=== PATIENT | female | born 1950 | race Caucasian/White ===

== ENCOUNTER 2023-07-22 13:48 | Outpatient (AMB) | payer MEDICARE, SELFPAY ==
--- NOTE | 2023-07-22 13:51 | MHC.OFFVIS ---
Intake Vital Signs 07/22/23 14:02 Height 5 ft 3 in BP 144/72 H Blood Pressure Location Rt brachial Position Sitting Respiration 16 Pulse 79 Pulse Source Pulse Oximeter Pulse Oximetry (%) 98 Oxygen Delivery Method Room Air Intake Visit Reasons: ENP-Subdural hematoma/abnormalities of gait&mobi Intake Note: Pt presents for new pt evaluation for abnormalities of gait and mobility. It Service Technician Required: No Allergies sulfamethoxazole Adverse Reaction (Intermediate, Verified 07/22/23 13:55) Anaphylaxis Medication List - Last Reconciled 07/22/23 by Pamella Lester MD albuterol sulfate 90 mcg/actuation 1 inh inhalation Q4-6H PRN atorvastatin 10 mg PO DAILY calcium carbonate (Calcium) 600 mg PO DAILY clobetasol 0.05% 1 appl topical DAILY duloxetine 60 mg PO DAILY duloxetine 30 mg PO DAILY fluticasone propionate 50 mcg/actuation (Allergy Relief (fluticasone)) 1 spray intranasal DAILY gabapentin 600 mg PO BEDTIME levothyroxine 75 mcg PO DAILY magnesium oxide 500 mg PO DAILY HPI HPI Comments History of Present Illness Details 73y/o right handed female comes for neurological evaluation following a traumatic cerebral hemorrhage in Mar 2023. she had a fall in the garage of her house - fell on cement / 3 stairs . she lost consiousness. Her found her , she had ice cream had not melted so she presumes that she was not unconscious for a long time.she woke up when her found her and she was confused and agitated. she was taken to [facility] trauma center-[facility] was 9 and improved to 13. she was found to have cerbebral hemorrhage, subarachnoid hemorrhage and 3 mm subdural hematoma in the left frontoparietal region with right occipiatl parietal bone nondisplaced skull fracture .( see results for details) Patient was seen by Neurosurgery and was admitted to ICU and started on seizure prophylaxis with keppra 500mg bid for 1 week. Her status improved and she was transferred to [facility] .when she was discharged she was neurologically stable with no deficits. Since her fall, she feels her cognition and walking is worse- better now.she denies headaches. she denies dizziness. COUNT INCLUDES [facility] Medical History (Updated 07/22/23 @ 15:10 by Pamella Lester MD) Cerebral hemorrhage following injury Cerebral hemorrhage without late effect Anxiety Obstructive sleep apnea Hyperlipidemia HTN (hypertension) Gait abnormality Lichen planus Depression Raynauds phenomenon Asthma Restless legs syndrome (RLS) Prediabetes Dizziness Hypothyroidism Surgical History H/O total hysterectomy History of cholecystectomy Total knee replacement status Social History Household Members: Spouse Caregiver staying overnight: Yes Housing: House Alcohol intake: current Comment: beer- occasional Patient Tobacco Use Status: Former Tobacco user Years Smoked: Quit in 1979 Physical Exam Vital Signs: Last Vital Signs Pulse 79 07/22/23 14:02 Resp 16 07/22/23 14:02 BP 144/72 H 07/22/23 14:02 Pulse Ox 98 07/22/23 14:02 Oxygen Delivery Method Room Air 07/22/23 14:02 Const General: cooperative, healthy appearing, comfortable and no acute distress Nutritional Appearance: average body habitus Orientation/consciousness: patient oriented x3 Limitations: no limitations Neck Neck: Yes no meningeal signs Neuro Other: Gait- mild waddling gait wide based and mild off balance Mild decreased blink General: patient oriented x3, gait normal, tone normal, moves all extremities, no meningeal signs and no focal motor deficits Cranial nerves: Yes Facial sensation intact/muscles of mastication intact, Yes Nystagmus not present and Yes Normal facial strength present Cognition (Neuro): normal cognition Motor exam (neuro): strength not 5/5 throughout and tone not normal throughout Deep tendon reflexes (DTR's): Right triceps reflex intensity grade: 2+, Left triceps reflex intensity grade: 2+, Rt Biceps (C5, C6): 2+, Left biceps reflex intensity grade: 2+, Right brachioradialis reflex intensity grade: 2+, Left brachioradialis reflex intensity grade: 2+, Right patellar reflex intensity grade: 2+ and Left patellar reflex intensity grade: 2+ Coordination: [id number]-[id number] test normal Psych Affect: Anxious affect present Orientation What is the (year) (season) (date) (day) (month)?: year, season, date, day and month Where are we (state) (county) (town or city) (hospital) (floor)?: state, county, town or city, hospital/clinic and floor Registration Name of 3 unrelated objects clearly and slowly, then ask patient to repeat all 3 of them. (1st repeat determines score. Make sure they can repeat all three): object 1, object 2 and object 3 Attention & Calculation (CHOOSE ONE) Ask pt to begin with 100 & count backward by 7. Stop after 5 repeats. If pt cannot ask them to spell the word WORLD backward.: 93, 86, 79, 72 and 65 Recall Ask patient to repeat the 3 items from question #3.: object 1, object 2 and object 3 Language Show patient a wristwatch & ask what it is. Repeat for pencil.: watch and pencil Ask the patient to repeat the phrase 'No ifs, ands, or buts' after you.: correct Ask the patient to 'take a piece of paper with their right hand' 'fold paper in half' 'place paper on floor': take paper in right hand, fold paper in half and place paper on floor Print the sentence 'CLOSE YOUR EYES' on a piece. If patient actually closes eyes then score.: followed written direction Give patient a blank piece of paper & ask to write a sentence. Score if it contains a noun & verb.: sentence contains subject and verb Ask patient to copy figure of intersecting pentagons exactly. Score if all 10 angles & 2 intersects are included.: all 10 angles present & 2 are intersected Score Score: 30 Results Reviewed Results Reviewed: 04/11/23 CT Brain- Right occipital and parietal bone nondisplaced skull fracture . Scattered areas of Subarachnoid hemorrhage.Small left frontal Subdural hematoma measuring 3mm maximal thickness. Possible small Subdural collections in the more lateral left frontal area. 04/12/23- Evidence of expanding left subarachnoid hemoorhage and subdural hematoma developing parenchymal hemorrhage within the left temporal lobe. Developing effacement of the left lateral ventricle. No significnat midline shift. 06/26/23 CT Brain-Interval resolution of left parenchymal hemorrhage as well as subarachnoid hemorrhages in left frontal,parietal and temporal region Healing nondispalced parietal fracture Assessment & Plan Assessment & Plan (1) Cerebral hemorrhage following injury: Comment: Apr 11 fall - with left frontotemporal parenchymal , SAH and small subdural , right occipital, parietal fracture CT 06/26/23 shows resolution Code(s): S06.36AA - Traumatic hemorrhage of cerebrum, unspecified, with loss of consciousness status unknown, initial encounter (2) Obstructive sleep apnea: Code(s): G47.33 - Obstructive sleep apnea (adult) (pediatric) (3) Gait abnormality: Code(s): R26.9 - Unspecified abnormalities of gait and mobility Plan PT for gait and balance. Discussed about wearing proper fitting shoes to avoid falls and tripping. Home safety assessment was done by GAIL I suggested she restart CPAP- will get reports from [place] - and refer her to a different home care company for supplies. Orders: Orders PT Evaluation and Treatment Today R26.9 - Unspecified abnormalities of gait and mobility Coding Level of Care Code New Pt Level 4 (88251) Diagnoses Cerebral hemorrhage following injury S06.36AA Obstructive sleep apnea G47.33 Gait abnormality R26.9
[2023-07-22 14:02] VITALS: BP 144/72; PULSE 79; RESP 16; O2SAT 98
== END 2023-07-22 14:57 | disposition home or self-care (01) ==
PROVIDERS: Visit Provider Psychiatry & Neurology Neurology
DX: S06.36AA Traumatic hemorrhage of cerebrum, unspecified, with loss of consciousness status unknown, initial encounter (principal); G47.33 Obstructive sleep apnea (adult) (pediatric); R26.9 Unspecified abnormalities of gait and mobility
CPT/HCPCS: 99204

== ENCOUNTER → 2023-07-22 13:48 | Outpatient (BNVA) | payer MEDICARE, SELFPAY | PROVIDERS: Visit Provider Psychiatry & Neurology Neurology | DX: S06.36AA Traumatic hemorrhage of cerebrum, unspecified, with loss of consciousness status unknown, initial encounter (principal); G47.33 Obstructive sleep apnea (adult) (pediatric); R26.9 Unspecified abnormalities of gait and mobility; X58.XXXA Exposure to other specified factors, initial encounter; Y93.9 Activity, unspecified; Y92.9 Unspecified place or not applicable; Y99.9 Unspecified external cause status | CPT/HCPCS: 99202 ==

== ENCOUNTER 2023-12-21 14:00 | Outpatient (AMB) | payer MEDICARE, SELFPAY ==
--- NOTE | 2023-12-21 14:02 | MHC.OFFVIS ---
Vital Signs 12/21/23 14:03 Height 5 ft 3 in Weight 192 lb 4 oz BMI 34.1 BP 126/68 Blood Pressure Location Rt brachial Position Sitting Respiration 17 Pulse 80 Pulse Source Pulse Oximeter Pulse Oximetry (%) 98 Oxygen Delivery Method Room Air Intake Visit Reasons: 4 Month Follow Up - LVM w/add Intake Note: P presents to the office for a 5 month follow up for cerebral hemorrhage. Information Systems Planner Required: No Allergies sulfamethoxazole Adverse Reaction (Intermediate, Verified 12/21/23 14:03) Anaphylaxis Medication List - Last Reconciled 12/21/23 by Pamella Lester MD albuterol sulfate 90 mcg/actuation 1 inh inhalation Q4-6H PRN amlodipine 5 mg PO DAILY atorvastatin 10 mg PO DAILY buspirone 5 mg PO BID calcium carbonate (Calcium 600) 600 mg PO DAILY clobetasol 0.05% 1 appl topical DAILY duloxetine 60 mg PO DAILY duloxetine 30 mg PO DAILY fluticasone propionate 50 mcg/actuation (Allergy Relief (fluticasone)) 1 spray intranasal DAILY gabapentin 600 mg PO BEDTIME levothyroxine 75 mcg PO DAILY magnesium oxide 500 mg PO DAILY HPI Comments Details: 73y/o right handed female comes for follow up following a traumatic cerebral hemorrhage in Mar 2023. she is doing better.she still has not started CPAP. she reports anxiety No seizures History- she had a fall in the garage of her house - fell on cement / 3 stairs . she lost consiousness. Her found her , she had ice cream had not melted so she presumes that she was not unconscious for a long time.she woke up when her found her and she was confused and agitated. she was taken to [facility] trauma center-[facility] was 9 and improved to 13. she was found to have cerbebral hemorrhage, subarachnoid hemorrhage and 3 mm subdural hematoma in the left frontoparietal region with right occipiatl parietal bone nondisplaced skull fracture .( see results for details) Patient was seen by Neurosurgery and was admitted to ICU and started on seizure prophylaxis with keppra 500mg bid for 1 week. Her status improved and she was transferred to [facility] .when she was discharged she was neurologically stable with no deficits. Since her fall, she feels her cognition and walking is worse- better now.she denies headaches. she denies dizziness. [facility] Medical History Word finding difficulty Cerebral hemorrhage following injury Cerebral hemorrhage without late effect Anxiety Obstructive sleep apnea Hyperlipidemia HTN (hypertension) Gait abnormality Lichen planus Depression Raynauds phenomenon Asthma Restless legs syndrome (RLS) Prediabetes Dizziness Hypothyroidism Surgical History H/O total hysterectomy History of cholecystectomy Total knee replacement status Social History Household Members: Spouse Caregiver staying overnight: Yes Housing: House Alcohol intake: current Comment: beer- occasional Patient Tobacco Use Status: Former Tobacco user Years Smoked: Quit in 1979 Physical Exam Vital Signs: Last Vital Signs Pulse 80 12/21/23 14:03 Resp 17 12/21/23 14:03 BP 126/68 12/21/23 14:03 Pulse Ox 98 12/21/23 14:03 Oxygen Delivery Method Room Air 12/21/23 14:03 BMI result Body Mass Index 34.1 Const General: cooperative, healthy appearing and comfortable Nutritional Appearance: average body habitus Orientation/consciousness: patient oriented x3 Neck Neck: Yes no meningeal signs Neuro Other: Gait- mild waddling gait wide based and mild off balance Mild decreased blink General: patient oriented x3, gait normal, tone normal, moves all extremities, no meningeal signs and no focal motor deficits Cranial nerves: Yes Facial sensation intact/muscles of mastication intact, Yes Nystagmus not present and Yes Normal facial strength present Cognition (Neuro): normal cognition Motor exam (neuro): 5/5 motor strength present throughout and Normal motor muscle tone present throughout Coordination: [id number] test normal Psych Affect: Anxious affect present Assessment & Plan Assessment & Plan (1) Cerebral hemorrhage following injury: Comment: Apr 11 fall - with left frontotemporal parenchymal , SAH and small subdural , right occipital, parietal fracture CT 06/26/23 shows resolution Code(s): S06.36AA - Traumatic hemorrhage of cerebrum, unspecified, with loss of consciousness status unknown, initial encounter Category: Medical (2) Obstructive sleep apnea: Code(s): G47.33 - Obstructive sleep apnea (adult) (pediatric) Category: Medical (3) Gait abnormality: Code(s): R26.9 - Unspecified abnormalities of gait and mobility Category: Medical Plan Continue PT for gait and balance. Continue exercises. Speech therapy I suggested she restart CPAP- will get reports from [place] - and refer her to a different home care company for supplies. Orders: Referrals Speech and Hearing Referral R47.89 - Other speech disturbances, S06.36AA - Traumatic hemorrhage of cerebrum, unspecified, with loss of consciousness status unknown, initial encounter Coding Level of Care Code Est Pt Level 4 (35412) Diagnoses Cerebral hemorrhage following injury S06.36AA Obstructive sleep apnea G47.33 Gait abnormality R26.9
[2023-12-21 14:03] VITALS: BP 126/68; PULSE 80; RESP 17; O2SAT 98; BMI 34.1
== END 2023-12-21 14:37 | disposition home or self-care (01) ==
PROVIDERS: PCP Nurse Practitioner Primary Care; Visit Provider Psychiatry & Neurology Neurology
DX: R26.9 Unspecified abnormalities of gait and mobility (principal); G47.33 Obstructive sleep apnea (adult) (pediatric)
CPT/HCPCS: 99213

== ENCOUNTER → 2023-12-21 14:00 | Outpatient (BNVA) | payer MEDICARE, SELFPAY | PROVIDERS: Visit Provider Psychiatry & Neurology Neurology | DX: S06.36AA Traumatic hemorrhage of cerebrum, unspecified, with loss of consciousness status unknown, initial encounter (principal); S06.6XAA Traumatic subarachnoid hemorrhage with loss of consciousness status unknown, initial encounter; R40.2420 Glasgow coma scale score 9-12, unspecified time; S06.5XAA Traumatic subdural hemorrhage with loss of consciousness status unknown, initial encounter; W10.9XXA Fall (on) (from) unspecified stairs and steps, initial encounter; Y93.01 Activity, walking, marching and hiking; Y92.008 Other place in unspecified non-institutional (private) residence as the place of occurrence of the external cause; Y99.9 Unspecified external cause status; R26.9 Unspecified abnormalities of gait and mobility; G47.33 Obstructive sleep apnea (adult) (pediatric) | CPT/HCPCS: 99212 ==

== ENCOUNTER 2024-07-11 12:46 | Outpatient (AMB) | payer MEDICARE, SELFPAY ==
--- NOTE | 2024-07-11 12:48 | MHC.OFFVIS ---
Vital Signs 07/11/24 12:51 Height 5 ft 3 in Weight 196 lb BMI 34.7 BP 124/70 Blood Pressure Location Rt brachial Position Sitting Pulse 73 Pulse Source Pulse Oximeter Pulse Oximetry (%) 100 Oxygen Delivery Method Room Air Intake Visit Reasons: 6m follow up Intake Note: Patient presents for 6 month follow up speech eval 12/30/23 Allergies sulfamethoxazole Adverse Reaction (Intermediate, Verified 07/11/24 12:52) Anaphylaxis HPI Comments Details: 74y/o right handed female comes for follow up following a traumatic cerebral hemorrhage in Mar 2023. she was doing OK but feels more off balance when she changes positions.. .she restarted CPAP . she reports anxiety No seizures History- she had a fall in the garage of her house - fell on cement / 3 stairs . she lost consiousness. Her found her , she had ice cream had not melted so she presumes that she was not unconscious for a long time.she woke up when her found her and she was confused and agitated. she was taken to [facility] trauma center-[facility] was 9 and improved to 13. she was found to have cerbebral hemorrhage, subarachnoid hemorrhage and 3 mm subdural hematoma in the left frontoparietal region with right occipiatl parietal bone nondisplaced skull fracture .( see results for details) Patient was seen by Neurosurgery and was admitted to ICU and started on seizure prophylaxis with keppra 500mg bid for 1 week. Her status improved and she was transferred to [facility] .when she was discharged she was neurologically stable with no deficits. Since her fall, she feels her cognition and walking is worse- better now.she denies headaches. she denies dizziness. [facility] Medical History Word finding difficulty Cerebral hemorrhage following injury Cerebral hemorrhage without late effect Anxiety Obstructive sleep apnea Hyperlipidemia HTN (hypertension) Gait abnormality Lichen planus Depression Raynauds phenomenon Asthma Restless legs syndrome (RLS) Prediabetes Dizziness Hypothyroidism Surgical History H/O total hysterectomy History of cholecystectomy Total knee replacement status Social History Household Members: Spouse Caregiver staying overnight: Yes Housing: House Alcohol intake: current Comment: beer- occasional Patient Tobacco Use Status: Former Tobacco user Years Smoked: Quit in 1979 Physical Exam Vital Signs: Last Vital Signs Pulse 73 07/11/24 12:51 BP 124/70 07/11/24 12:51 Pulse Ox 100 07/11/24 12:51 Oxygen Delivery Method Room Air 07/11/24 12:51 BMI result Body Mass Index 34.7 Const General: cooperative, healthy appearing and comfortable Nutritional Appearance: average body habitus Orientation/consciousness: patient oriented x3 Neck Neck: Yes no meningeal signs Neuro Other: Gait- mild waddling gait wide based and mild off balance Mild decreased blink General: patient oriented x3, gait normal, tone normal, moves all extremities, no meningeal signs and no focal motor deficits Cranial nerves: Yes Facial sensation intact/muscles of mastication intact, Yes Nystagmus not present and Yes Normal facial strength present Cognition (Neuro): normal cognition Motor exam (neuro): 5/5 motor strength present throughout and Normal motor muscle tone present throughout Coordination: [id number] test normal Psych Affect: Anxious affect present Assessment & Plan Assessment & Plan (1) Cerebral hemorrhage following injury: Comment: Apr 11 fall - with left frontotemporal parenchymal , SAH and small subdural , right occipital, parietal fracture CT 06/26/23 shows resolution Code(s): S06.36AA - Traumatic hemorrhage of cerebrum, unspecified, with loss of consciousness status unknown, initial encounter Category: Medical Qualifiers: Encounter type: sequela (2) Obstructive sleep apnea: Code(s): G47.33 - Obstructive sleep apnea (adult) (pediatric) Category: Medical (3) Gait abnormality: Code(s): R26.9 - Unspecified abnormalities of gait and mobility Category: Medical Plan will refer her to vestibular therapy Continue exercises. CPAP- will get reports from [place] - and refer her to a different home care company for supplies. Orders: Orders PT Evaluation and Treatment Today R42 - Dizziness and giddiness Coding Level of Care Code Est Pt Level 4 (85443) Diagnoses Cerebral hemorrhage following injury S06.36AA Encounter type: sequela Obstructive sleep apnea G47.33 Gait abnormality R26.9
[2024-07-11 12:51] VITALS: BP 124/70; PULSE 73; O2SAT 100; BMI 34.7
--- OUTSIDE RECORDS SUMMARY | 2024-07-11 14:51 | XMS_ITS | Clinical Summary ---
Author Organization [facility] Address [address] [place] [address] Phone Care Team Providers Care Sightseeing Guide Name Role Phone Jessica Padilla JELANI Primary Care Provider [phone] Allergies Active Allergy Reactions Criticality Noted Date Comments Sulfamethoxazole-Trimethoprim 2023 Respiratory distress Medications albuterol HFA (PROAIR HFA ; PROVENTIL HFA ; VENTOLIN HFA) 90 mcg/actuation inhaler Inhale 2 puffs by mouth every 4 (four) hours if needed. Active amLODIPine-ator vastatin (CADUET) 5-10 mg per tablet Take 1 tablet by mouth 1 (one) time each day. Active amoxicillin (AMOXIL) 500 mg capsule Take 1 Capsule by mouth 3 times daily. Active atorvastatin (LIPITOR) 10 mg tablet Take 1 tablet (10 mg total) by mouth 1 (one) time each day. Active budesonide-form oteroL (SYMBICORT) 80-4.5 mcg/actuation inhaler Inhale 2 Puffs into the lungs 2 times daily. Active clobetasoL-niac inamide (Chlooxia) 0.05-4 % ointment Apply topically. Active DULoxetine (CYMBALTA) [address] capsule Take 1 capsule (30 mg total) by mouth 1 (one) time each day. Active DULoxetine (CYMBALTA) [address] capsule Take 1 capsule (60 mg total) by mouth 1 (one) time each day. Active estradioL (VAGIFEM) 10 mcg tablet vaginal tablet Insert into the vagina. Active fluticasone furoate (Arnuity Ellipta) 50 mcg/actuation blister with device inhaler Inhale into the lungs. Active gabapentin (NEURONTIN) 600 mg tablet Take 1 tablet (600 mg total) by mouth 2 (two) times a day. Active magnesium oxide 500 mg capsule Take by mouth. Active busPIRone (BUSPAR) 5 mg tablet Take 1 tablet (5 mg total) by mouth. 11/23/2023 Active levothyroxine (SYNTHROID, LEVOTHROID) 75 mcg tablet Take 1 tablet (75 mcg total) by mouth 1 (one) time each day. 07/24/2022 Active Surgical History Surgery Date Site/Laterality Comments TOTAL KNEE ARTHROPLASTY Bilateral CHOLECYSTECTOMY BLADDER SUSPENSION Medical History Medical History Date Comments Hypertension Hyperlipidemia Anxiety Hypothyroid Sleep apnea Asthma Subdural hematoma (CMS/HCC) Social History Tobacco Use Types Packs/Day Years Used Date Smoking Tobacco: Former Cigarettes Smokeless Tobacco: Never Tobacco Cessation:Counseling Given: Not Answered Alcohol Use Standard Drinks/Week Comments Not Currently 0 (1 standard drink = 0.6 oz pur e alcohol) Interpersonal Safety Answer Date Record ed Physical Abuse 03/14/2024 Verbal Abuse 03/14/2024 Comments Unknown Sex and Gender Information Value Date Recorded Sex Assigned at Not on file Legal Sex Female 11:07 AM EDT Gender Identity Not on file Sexual Orientation Not on file Obstetrics History Last Filed Vital Signs Vital Sign Reading Time Taken Comments Blood Pressure 143/71 03/14/2024 3:50 PM EST Pulse 75 03/14/2024 3:50 PM EST Temperature 36.1 ??C (97 ??F) 03/14/2024 3:30 PM EST Respiratory Rate 18 03/14/2024 3:50 PM EST Oxygen Saturation 100% 03/14/2024 3:50 PM EST Inhaled Oxygen Concentration - - Weight 85.7 kg (189 lb) 03/14/2024 2:51 PM EST Height 160 cm (5' 3 ) 03/14/2024 2:51 PM EST Body Mass Index 33.48 03/14/2024 2:51 PM EST Plan of Treatment Health Maintenance Due Date Last Done Comments Breast Cancer Screening 1950 DTaP,Tdap,and Td Vaccines (2 - Td or Tdap) 02/02/2022 02/03/2012 Cholesterol Screening (Lipid Panel) 11/20/2023 Depression Screening 11/20/2023 Hepatitis C Screening 11/20/2023 Medicare Annual Wellness Visit 11/20/2023 Osteoporosis Screening (Bone Density Screening) 11/20/2023 Social Influencers of Health Screening 11/20/2023 COVID-19 Vaccine ( season) 2023 02/07/2023, 09/18/2021, 02/27/2021, Additional history exists Influenza Vaccine (#1) 2023 , 02/03/2022, 02/03/2021, Additional history exists Hypertension/CHF/CAD Annual BMP Blood Test 03/14/2024 Falls Risk Assessment 03/14/2025 03/14/2024 Colorectal Cancer Screening: Colonoscopy 03/14/2029 03/14/2024, 08/09/2020 Zoster Vaccines Completed 05/06/2021, 01/25, 02/11/2012 Pneumococcal Vaccine: 50+ Years Completed 09/18/2021, 02/04/2016, 05/17/2014 RSV Immunization Patients 60+ Years Old Completed 03/02/2023 HIB Vaccines Aged Out No longer eligi ble based on patient's age to complete this topic HPV Vaccines Aged Out No longer eligi ble based on patient's age to complete this topic Hepatitis A Vaccines Aged Out No long er eligible based on patient's age to complete this topic Hepatitis B Vaccines Aged Out No long er eligible based on patient's age to complete this topic IPV Vaccines Aged Out No longer eligi ble based on patient's age to complete this topic MMR Vaccines Aged Out No longer eligi ble based on patient's age to complete this topic Meningococcal ACWY Vaccine Aged Out N o longer eligible based on patient's age to complete this topic Meningococcal B Vacine Aged Out No lo nger eligible based on patient's age to complete this topic RSV Immunization Patients Under 20 months Aged Out No longer eligible based on patient's age to complete this topic Varicella Vaccines Aged Out No longer eligible based on patient's age to complete this topic Procedures Procedure Name Priority Date/Time Associated Diagnosis Comments COLONOSCOPY Routine 03/14/2024 3:29 PM EST Hx of colonic polyps from Last 3 Months or Most Recently Relevant to Health Maintenance Results * COLONOSCOPY Anesthesia - MAC; [facility] ENDOSCOPY (03/14/2024 3:29 PM EST) Anatomical Region Laterality Modality Endoscopy 03/14/2024 3:09 PM EST Impressions 03/14/2024 3:30 PM EST - Hemorrhoids found on perianal exam. ? - One 7 mm polyp in the rectum, removed with a cold ? snare. Resected and retrieved. ? - The examination was otherwise normal on direct and ? retroflexion views. Recommendation: ?- - Discharge patient to home. ? - High fiber diet. ? - Continue present medications. ? - Await pathology results. ? - Repeat colonoscopy for surveillance based on ? pathology results. Narrative 03/14/2024 3:[address] [facility] Patient Name: Lucrecia Marroquin Procedure Date: 03/14/2024 3:09 PM Date of : 1950 Age: 74 Gender: Female Note Status: Finalized Attending MD: Keon Vazquez DO, [id number] Procedure Date No Time: 03/14/2024 Procedure: ? Colonoscopy Indications: ? High risk colon cancer surveillance: Personal history ? of colonic polyps Providers: ? Keon Vazquez DO Referring MD: ?Sydnie Padilla PA-C Medicines: ? Monitored Anesthesia Care Complications: ? No immediate complications. Estimated blood loss: ? Minimal. Estimated Blood Loss: ? Estimated blood loss was minimal. Procedure: ? Pre-Anesthesia Assessment: ? - - Prior to the procedure, a History and Physical was ? performed, and patient medications and allergies were ? reviewed. The patient is competent. The risks and ? benefits of the procedure and the sedation options and ? risks were discussed with the patient. All questions ? were answered and informed consent was obtained. ? Patient identification and proposed procedure were ? verified by the physician, the nurse, the ? anesthesiologist, the inspector handbag frames and the aviation safety equipment technician ? in the pre-procedure area in the endoscopy suite. ? Mental Status Examination: alert and oriented. Airway ? Examination: normal oropharyngeal airway and neck ? mobility. Respiratory Examination: clear to ? auscultation. CV Examination: normal. Prophylactic ? Antibiotics: The patient does not require prophylactic ? antibiotics. Prior Anticoagulants: The patient has ? taken no anticoagulant or antiplatelet agents. ASA ? Grade Assessment: II - A patient with severe systemic ? disease. After reviewing the risks and benefits, the ? patient was deemed in satisfactory condition to ? undergo the procedure. The anesthesia plan was to use ? monitored anesthesia care (MAC). Immediately prior to ? administration of medications, the patient was ? re-assessed for adequacy to receive sedatives. The ? heart rate, respiratory rate, oxygen saturations, ? blood pressure, adequacy of pulmonary ventilation, and ? response to care were monitored throughout the ? procedure. The physical status of the patient was ? re-assessed after the procedure. ? After I obtained informed consent, the scope was ? passed under direct vision. Throughout the procedure, ? the patient's blood pressure, pulse, and oxygen ? saturations were monitored continuously.The ? Colonoscope was introduced through the anus and ? advanced to the cecum, identified by appendiceal ? orifice and ileocecal valve. The colonoscopy was ? performed without difficulty. The patient tolerated ? the procedure well. The quality of the bowel ? preparation was good. Findings: ?Hemorrhoids were found on perianal exam. ? A 7 mm polyp was found in the rectum. The polyp was ? sessile. The polyp was removed with a cold snare. ? Resection and retrieval were complete. Estimated blood ? loss was minimal. ? The exam was otherwise without abnormality on direct ? and retroflexion views. Procedure Code(s): ? --- Professional --- ? 81998, Colonoscopy, flexible; with removal of ? tumor(s), polyp(s), or other lesion(s) by snare ? technique Diagnosis Code(s): ? --- Professional --- ? K64.9, Unspecified hemorrhoids ? Z86.010, Personal history of colonic polyps ? D12.8, Benign neoplasm of rectum CPT copyright 2020 [employer]. All rights reserved. The codes documented in this report are preliminary and upon service technician review may be revised to meet current compliance requirements. KEON Vazquez DO 03/14/2024 3:30:32 PM This report has been signed electronically.Keon Vazquez DO Number of Addenda: 0 Note Initiated On: 03/14/2024 3:09 PM Scope Withdrawal Time: 0 hours 6 minutes 27 seconds Scope In: 3:12:10 PM Scope Out: 3:28:29 PM ? Endoscopy Department at [facility] - [address] [place] [address], ? [place] [id number] Procedure Note Keon Vazquez DO - 03/14/2024 [facility] Patient Name: Lucrecia Marroquin Procedure Date: 03/14/2024 3:09 PM Date of : 1950 Age: 74 Gender: Female Note Status: Finalized Attending MD: Keon Vazquez DO, [id number] Procedure Date No Time: 03/14/2024 Procedure: Colonoscopy Indications: High risk colon cancer surveillance: Personalhistory of colonic polyps Providers: Keon Vazquez DO Referring MD: Sydnie Padilla PA-C Medicines: Monitored Anesthesia Care Complications: No immediate complications. Estimated blood loss: Minimal. Estimated Blood Loss: Estimated blood loss was minimal. Procedure: Pre-Anesthesia Assessment: - - Prior to the procedure, a History and Physicalwas performed, and patient medications and allergieswere reviewed. The patient is competent. The risks and benefits of the procedure and the sedation optionsand risks were discussed with the patient. Allquestions were answered and informed consent was obtained. Patient identification and proposed procedure were verified by the physician, the nurse, the anesthesiologist, the inspector handbag frames and thetechnician in the pre-procedure area in the endoscopy suite. Mental Status Examination: alert and oriented.Airway Examination: normal oropharyngeal airway and neck mobility. Respiratory Examination: clear to auscultation. CV Examination: normal. Prophylactic Antibiotics: The patient does not requireprophylactic antibiotics. Prior Anticoagulants: The patient has taken no anticoagulant or antiplatelet agents. ASA Grade Assessment: II - A patient with severesystemic disease. After reviewing the risks and benefits,the patient was deemed in satisfactory condition to undergo the procedure. The anesthesia plan was touse monitored anesthesia care (MAC). Immediately priorto administration of medications, the patient was re-assessed for adequacy to receive sedatives. The heart rate, respiratory rate, oxygen saturations, blood pressure, adequacy of pulmonary ventilation,and response to care were monitored throughout the procedure. The physical status of the patient was re-assessed after the procedure. After I obtained informed consent, the scope was passed under direct vision. Throughout theprocedure, the patient's blood pressure, pulse, and oxygen saturations were monitored continuously.The Colonoscope was introduced through the anus and advanced to the cecum, identified by appendiceal orifice and ileocecal valve. The colonoscopy was performed without difficulty. The patient tolerated the procedure well. The quality of the bowel preparation was good. Findings: Hemorrhoids were found on perianal exam. A 7 mm polyp was found in the rectum. The polyp was sessile. The polyp was removed with a cold snare. Resection and retrieval were complete. Estimatedblood loss was minimal. The exam was otherwise without abnormality ondirect and retroflexion views. Procedure Code(s): --- Professional --- 55313, Colonoscopy, flexible; with removal of tumor(s), polyp(s), or other lesion(s) by snare technique Diagnosis Code(s): --- Professional --- K64.9, Unspecified hemorrhoids Z86.010, Personal history of colonic polyps D12.8, Benign neoplasm of rectum CPT copyright 2020 [employer]. All rights reserved. The codes documented in this report are preliminary and upon service technician reviewmay be revised to meet current compliance requirements. KEON Vazquez DO 03/14/2024 3:30:32 PM This report has been signed electronically.Keon Vazquez DO Number of Addenda: 0 Note Initiated On: 03/14/2024 3:09 PM Scope Withdrawal Time: 0 hours 6 minutes 27 seconds Scope In: 3:12:10 PM Scope Out: 3:28:29 PM Endoscopy Department at [facility] - [address] [place] [id number] IMPRESSION: - Hemorrhoids found on perianal exam. - One 7 mm polyp in the rectum, removed with a cold snare. Resected and retrieved. - The examination was otherwise normal on directand retroflexion views. Recommendation: - - Discharge patient to home. - High fiber diet. - Continue present medications. - Await pathology results. - Repeat colonoscopy for surveillance based on pathology results. Keon Vazquez DO GI~PROCEDURE ORDERABLES Final Re sult from Last 3 Months or Most Recently Relevant to Health Maintenance Insurance MEDICARE [employer] Care Teams Sightseeing Guide Relationship Specialty Start Date End Date Jessica Padilla NP [address] [place] [address] [address] [place] [address] PCP - General 03/11/24
--- OUTSIDE RECORDS SUMMARY | 2024-07-11 14:51 | XMS_ITS | Continuity of Care Document ---
Author Organization [facility] Address [address] [place] [address] [place] [address] Phone Care Team Providers Care Health Care Facility Administrator Name Role Phone Nenita Feldman MD Unavailable [...] Active Procedures Procedure Date OFFICE/OUTPATIENT VISIT, EST COMPREHENSIVE EYE EXAM, EST. PATIENT May COMPREHENSIVE EYE EXAM, EST. PATIENT May POSTOP FOLLOW-UP VISIT CATARACT SURG W/IOL, 1 STAGE OPHTHALMIC BIOMETRY POSTOP FOLLOW-UP VISIT CATARACT SURG W/IOL, 1 STAGE OPHTHALMIC BIOMETRY COMPREHENSIVE EYE EXAM, EST. PATIENT Mar SPECIAL EYE EVALUATION COMPREHENSIVE EYE EXAM, EST. PATIENT Jan REFRACTION WITH EXAM SPECIAL EYE EVALUATION COMPREHENSIVE EYE EXAM, EST. PATIENT Jan Scanning Imaging, Posterior Segment, Opt ic Nerve Oct- SPECIAL EYE EVALUATION COMPREHENSIVE EYE EXAM, EST. PATIENT Jan Scanning Imaging, Posterior Segment, Opt ic Nerve Oct- SPECIAL EYE EVALUATION VISUAL FIELD EXAMINATION(S) EYE EXAM & TREATMENT FUNDUS PHOTOGRAPHY SPECIAL EYE EVALUATION EYE EXAM ESTABLISHED PAT SPECIAL EYE EVALUATION EYE EXAM & TREATMENT REFRACTION WITH EXAM Scanning Imaging, Posterior Segment, Opt ic Nerve SPECIAL EYE EVALUATION SPECIAL EYE EVALUATION EYE EXAM & TREATMENT REFRACTION WITH EXAM EYE EXAM ESTABLISHED PAT VISUAL FIELD EXAMINATION(S) EYE EXAM & TREATMENT SPECIAL EYE EVALUATION OFFICE/OUTPATIENT VISIT, EST OFFICE/OUTPATIENT VISIT, EST VISUAL FIELD EXAMINATION(S) EYE EXAM & TREATMENT REFRACTION WITH EXAM Scanning Imaging, Posterior Segment, Opt ic Nerve SPECIAL EYE EVALUATION No Charge Appointment EYE EXAM & TREATMENT REFRACTION WITH EXAM Scanning Imaging, Posterior Segment, Opt ic Nerve EYE EXAM ESTABLISHED PAT SPECIAL EYE EVALUATION EYE EXAM ESTABLISHED PAT SPECIAL EYE EVALUATION EYE EXAM ESTABLISHED PAT VISUAL FIELD EXAMINATION(S) SPECIAL EYE EVALUATION OPTHALMIC DX IMAGING OPTHALMIC DX IMAGING EYE EXAM & TREATMENT REFRACTION WITH EXAM Advance Directives Directive Yes / No Effective Date File Name No Information Encounters Encounter Description Practice Location Reason(s) For Visit Diagnoses Date Provider Providers Copied on Encounter OFFICE/OUTPA TIENT VISIT, EST [facility] , [address], [facility], tel:[phone] [place] decreased vision (chief complaint) Presence of pseudophakia Mar-0 - 2 Gastno Murguia [address] [facility], [address], [facility], [place]. tel:[phone] [facility] , [address] [place] [address], [facility], tel:[phone] [place] vitreous detachment (chief complaint) Vitreous detachment of right eyeBilateral vitreous detachment of eyes May-2 [address] Gaston [address]urguia [address] [place] [address], [address], [facility], [place]. tel:[phone] [facility] , [address] [place] [address], [facility], tel:[phone] [place] s/p CE IOL (chief complaint) Presence of pseudophakiaV itreous detachment of right eye b-2 1 Gaston Murguia [address] [facility], [address], [facility], [place]. tel:[phone] [facility] , [address] [place] [address], [facility], [place] tel:[phone] [place] 1 week s/p cataract sx (chief complaint) Presence of pseudophakia b-1 0- 1 Gaston Murguia [address] [facility], [address], [facility], [place]. tel:[phone] [facility] , [address] [place] [address], [facility], tel:[phone] [facility] No Information b-0 1 Gaston Murguia [address] [facility], [address], [facility], [place]. tel:[phone] [facility] , [address] [place] [address], [facility], tel:[phone] [place] sp Cataract sx (chief complaint) Presence of pseudophakia 1 Gaston Murguia [address] [place] [address], [address], [facility], . tel:[phone] [facility] , [address] [place] [address], [facility], tel:[phone] [facility] No Information 1 Gaston Murguia [address] [place] [address], [address], [facility], . tel:[phone] [facility] , [address] [place] [address], [facility], tel:[phone] [place] No Information 0 Gaston Murguia [address] [place] [address], [address], [facility], . tel:[phone] [facility] , [address] [place] [address], [facility], tel:[phone] [place] cataracts (chief complaint) Cortical age-related cataract, bilateralAnat omical narrow angle, bilateral Dec-0 0 Gaston Murguia [address] [place] [address], [address], [facility], . tel:[phone] [facility] , [address] [place] [address], [facility], [place] tel:[phone] [place] decreased vision (chief complaint) Cortical age-related cataract, bilateralAnat omical narrow angle, bilateral Oct-2 9 Gaston Murguia [address] [place] [address], [address], [facility], [place]. tel:[phone] [facility] , [address] [place] [address], [facility], tel:[phone] [place] h/o cataracts & narrow angles (chief complaint) Anatomical narrow angle, bilateralCort ical age-related cataract, bilateral Oct-2 8 Gaston GutierresNajma [address] [facility], [address] [place] [address], [facility], [place]. tel:[phone] [facility] , [address], [facility], tel:[phone] [place] glaucoma suspect (chief complaint) Open angle with borderline findings, low risk, bilateralAnat omical narrow angle, bilateralCort ical age-related cataract, bilateral Oct-2 7 Gaston GutierresNajma [address] [facility], [address] [place] [address], [facility], [place]. tel:[phone] [facility] , [address] [place] [address], [facility], tel:[phone] [place] glaucoma (chief complaint) Open angle with borderline findings, low risk, bilateral Sep- 6 Gaston [address] [facility], [address], [facility], [place]. tel:[phone] [facility] , [address] [place] [address], [facility], tel:[phone] [place] blurry vision (chief complaint)G LAUCOMA/GERTRUDE PS (chief complaint) Anatomical narrow angle borderline glaucomaOpen angle with borderline glaucoma findings 6 Gaston [address] [facility], [address], [facility], [place]. tel:[phone] [facility] , [address] [place] [address], [facility], [place] tel:[phone] [place] blurry vision (chief complaint) Anatomical narrow angle borderline glaucomaCorti dana senile cataract 6 Gaston [address] [facility], [address] [place] [address], [facility], [place]. tel:[phone] [facility] , [address], [facility], [place] tel:[phone] [place] Anatomical narrow angle borderline glaucomaCorti dana senile cataract 5 Gaston Murguia [address] [place] [address], [address] [place] [address], [facility], . tel:[phone] [facility] , [address] [place] [address], [facility], tel:[phone] [place] No Information 4 Gaston Murguia [address] [place] [address], [address], [facility], [place]. tel:[phone] Referring Provider: Nenita Clemons, [address] [place] [address] [place] [address], [facility]. tel:[phone] [facility] , [address] [place] [address], [facility], tel:[phone] [place] Anatomical narrow angle borderline glaucomaPresb yopiaMyopia 4 Gaston Murguia [address] [place] [address], [address], [facility], . tel:[phone] [facility] , [address] [place] [address], [facility], tel:[phone] [place] Anatomical narrow angle borderline glaucoma 3 Gaston Murguia [address] [place] [address], [address], [facility], [place]. tel:[phone] Referring Provider: Nenita Clemons, [address] [place] [address] [place] [address], [facility]. tel:[phone] [facility] , [address] [place] [address], [facility], tel:[phone] [place] Anatomical narrow angle borderline glaucoma 3 Gaston Murguia [address] [place] [address], [address], [facility], [place]. tel:[phone] OFFICE/OUTPA TIENT VISIT, [facility] , [address] [place] [address], [facility], tel:[phone] [place] Anatomical narrow angle borderline glaucomaAnato mical narrow angle borderline glaucoma 3 No Information OFFICE/OUTPA TIENT VISIT, EST [facility] , [address] [address], [place], [address], [place] tel:[phone] [place] Anatomical narrow angle borderline glaucoma 3 No Information [facility] , [address], [address], [place] tel:[phone] [place] Anatomical narrow angle borderline glaucomaAnato mical narrow angle borderline glaucomaChang es in vascular appearance of retinaChanges in vascular appearance of retinaPresbyo piaPresbyopia 2 No Information [facility] , [address] [place] [address], [place], [address], [place] tel:[phone] [place] MyopiaMyopia 2 Gaston Gutierres. [address] [facility], [address], [facility], [place]. tel:[phone] [facility] , [address] [place] [address], [facility], tel:[phone] [place] Open angle with borderline glaucoma findings 1 Gaston Gutierres. [address] [place] [address], [address] [place] [address], [facility], [place]. tel:[phone] [facility] , [address] [place] [address], [facility], [place] tel:[phone] [place] Open angle with borderline glaucoma findingsOpen angle with borderline glaucoma findings 1 Gaston Murguia [address] [place] [address], [address], [facility], [place]. tel:[phone] [facility] , [address] [place] [address], [facility], [place] tel:[phone] [place] No Information 0 Gaston Murguia [address] [place] [address], [address], [facility], [place]. tel:[phone] Referring Provider: Nenita Clemons, [address] [place] [address] [place] [address], [facility]. tel:[phone] [facility] , [address], [address], tel:[phone] [place] No Information 0 No Information [facility] , [address], [address], tel:[phone] [place] No Information 0 No Information [facility] , [address], [address], tel:[phone] [place] No Information 0 No Information Family History Family Member Type Diagnosis Age At Onset Father Problem (finding) glaucoma Payers Payer name Insurance type Covered alliance party ID Luke lipscomb(s) Medicare MB [id number] [facility] [id number] Social History Type Description Quantity Date Captured [...] computer etc. She is, however, using bifocals. Reason For Referral Reason For Referral No Information History Of Present Illness Encounter Date Complaint [...] s/p cataract sx in the right eye. [place] top OU QID and [place] top OU [...] falls (hit head). Head CT normal, however. Functional Status Date Functional Assessmen t No Information Instructions Date Instruction Additional Infor matyolande Impression/Plan Related to Prese nce of pseudophakia Return in 1-[address] Feldman for Complete Exam. Related to Bilateral vitreous detachment of eyes Impression/Plan Related to Bilat eral vitreous detachment of eyes Impression/Plan Related to Vitre ous detachment of right eye Impression/Plan Related to Prese nce of pseudophakia Impression/Plan Related to Prese nce of pseudophakia Impression/Plan Related to Prese nce of pseudophakia Impression/Plan Related to Corti dana age-related cataract, bilateral Impression/Plan Related to Anato mical narrow angle, bilateral Return in 1 year [facility] cherri Feldman for Gonioscopy and Complete Exam. Related to Anatomical narrow angle, bilateral Impression/Plan Related to Corti dana age-related cataract, bilateral Impression/Plan Related to Anato mical narrow angle, bilateral Return in 1 year anastacia Feldman for Gonioscopy and Complete Exam. Related to Anatomical narrow angle, bilateral Impression/Plan Related to Anato mical narrow angle, bilateral Impression/Plan Related to Corti dana age-related cataract, bilateral Return in 1 year [facility] cherri Feldmna for Complete Exam , Gonioscopy , NFA. [...] 2009; OS: tr isolated defects, incons with 2009; pt to RTC 1 month to repeat [...] 20/50 in present/new rx Related to Myopia Glaucoma Suspect - n arrow angle suspect. gonio 10/05 nonoccludable but will follow yearly. NFLA today is nonspecific OU. Related to Glaucoma Suspect - Return in [address] Feldman for Follow up w/Gonioscopy and Follow [...] 2021 impression Presence of pseudophakia: Z96.1 Bilateral Patient Care Teams Name Effective Dates (start - stop) Status Members No Information
== END 2024-07-11 13:13 | disposition home or self-care (01) ==
LOC: HO.HSMS 12:47
PROVIDERS: Visit Provider Psychiatry & Neurology Neurology
DX: S06.36AA Traumatic hemorrhage of cerebrum, unspecified, with loss of consciousness status unknown, initial encounter (principal); G47.33 Obstructive sleep apnea (adult) (pediatric); R26.9 Unspecified abnormalities of gait and mobility
CPT/HCPCS: 99214

== ENCOUNTER → 2024-07-11 12:46 | Outpatient (BNVA) | payer MEDICARE, SELFPAY | PROVIDERS: Visit Provider Psychiatry & Neurology Neurology | DX: S06.36AA Traumatic hemorrhage of cerebrum, unspecified, with loss of consciousness status unknown, initial encounter (principal); G47.33 Obstructive sleep apnea (adult) (pediatric); R26.9 Unspecified abnormalities of gait and mobility; R42 Dizziness and giddiness; X58.XXXA Exposure to other specified factors, initial encounter; Y93.9 Activity, unspecified; Y92.9 Unspecified place or not applicable; Y99.9 Unspecified external cause status; Z99.89 Dependence on other enabling machines and devices | CPT/HCPCS: 99212 ==

== ENCOUNTER 2024-11-17 14:47 | Outpatient (AMB) | payer MEDICARE, SELFPAY ==
[2024-11-17 14:48] VITALS: BP 130/60; PULSE 89
--- NOTE | 2024-11-17 14:48 | A.OFFVIS_ITS ---
Vital Signs 11/17/24 14:48 Height 5 ft 3 in BP 130/60 Blood Pressure Location Rt brachial Position Sitting Pulse 89 Pulse Source Pulse Oximeter Intake Visit Reasons: 6m follow up Dial Refinisher Required: No Accompanied by: Spouse Allergies sulfamethoxazole Adverse Reaction (Intermediate, Verified 11/17/24 14:52) Anaphylaxis Medication List - Last Reconciled 11/17/24 by Pamella Lester MD albuterol sulfate 90 mcg/actuation 1 inh inhalation Q4-6H PRN amlodipine 5 mg PO DAILY atorvastatin 10 mg PO DAILY buspirone 5 mg PO BID calcium carbonate (Calcium 600) 600 mg PO DAILY clobetasol 0.05% 1 appl topical DAILY dulaglutide (Trulicity) 0.75 mg subcut QWEEK duloxetine 60 mg PO DAILY duloxetine 30 mg PO DAILY fluticasone propionate 50 mcg/actuation (Allergy Relief (fluticasone)) 1 spray intranasal DAILY gabapentin 600 mg PO BEDTIME levothyroxine 75 mcg PO DAILY magnesium oxide 500 mg PO DAILY HPI Comments Details: 74y/o right handed female comes for follow up following a traumatic cerebral hemorrhage in Mar 2023.she had 1 fall when she bent over to pick some things while coming from [place] - tripped on the step. she was doing OK but feels more off balance when she changes positions.. .she is CPAP .she is sleeping better.she reports positional dizziness . ? not feeling right in space, ANxiety is better. No seizures History- she had a fall in the garage of her house - fell on cement / 3 stairs . she lost consiousness. Her found her , she had ice cream had not melted so she presumes that she was not unconscious for a long time.she woke up when her found her and she was confused and agitated. she was taken to [facility] trauma center-[facility] was 9 and improved to 13. she was found to have cerbebral hemorrhage, subarachnoid hemorrhage and 3 mm subdural hematoma in the left fron toparietal region with right occipiatl parietal bone nondisplaced skull fracture .( see results for details) Patient was seen by Neurosurgery and was admitted to ICU and started on seizure prophylaxis with keppra 500mg bid for 1 week. Her status improved and she was transferred to [facility] .when she was discharged she was neurologically stable with no deficits. Since her fall, she feels her cognition and walking is worse- better now.she denies headaches. she denies dizziness. [facility] Medical History Vertigo Word finding difficulty Cerebral hemorrhage following injury Cerebral hemorrhage without late effect Anxiety Obstructive sleep apnea Hyperlipidemia HTN (hypertension) Gait abnormality Lichen planus Depression Raynauds phenomenon Asthma Restless legs syndrome (RLS) Prediabetes Dizziness Hypothyroidism Surgical History H/O total hysterectomy History of cholecystectomy Total knee replacement status Social History Household Members: Spouse Caregiver staying overnight: Yes Housing: House Alcohol intake: current Comment: beer- occasional Patient Tobacco Use Status: Former Tobacco user Years Smoked: Quit in 1979 Physical Exam Vital Signs: Last Vital Signs Pulse 89 11/17/24 14:48 BP 130/60 11/17/24 14:48 Const General: cooperative, healthy appearing and comfortable Nutritional Appearance: average body habitus Orientation/consciousness: patient oriented x3 Neck Neck: Yes no meningeal signs Neuro Other: Gait- wide based and off balance with cane Mild decreased blink General: patient oriented x3, gait normal, tone normal, moves all extremities, no meningeal signs and no focal motor deficits Cranial nerves: Yes Facial sensation intact/muscles of mastication intact, Yes Nystagmus not present and Yes Normal facial strength present Cognition (Neuro): normal cognition Motor exam (neuro): 5/5 motor strength present throughout and Normal motor muscle tone present throughout Coordination: [id number] test normal Psych Affect: Anxious affect present Assessment & Plan Assessment & Plan (1) Cerebral hemorrhage following injury: Comment: Apr 11 fall - with left frontotemporal parenchymal , SAH and small subdural , right occipital, parietal fracture CT 06/26/23 shows resolution Code(s): S06.36AA - Traumatic hemorrhage of cerebrum, unspecified, with loss of consciousness status unknown, initial encounter Category: Medical Qualifiers: Laterality: unspecified laterality (2) Obstructive sleep apnea: Code(s): G47.33 - Obstructive sleep apnea (adult) (pediatric) Category: Medical (3) Gait abnormality: Code(s): R26.9 - Unspecified abnormalities of gait and mobility Category: Medical Plan Vestibular therapy PT for gait and balance Continue exercises. CPAP- will get reports from [place] - and refer her to a different home care company for supplies. Orders: Orders PT Evaluation and Treatment Today R26.9 - Unspecified abnormalities of gait and mobility Coding Level of Care Code Est Pt Level 4 (60708) Complex EM visit Add On G2211 Diagnoses Cerebral hemorrhage following injury S06.36AA Laterality: unspecified laterality Obstructive sleep apnea G47.33 Gait abnormality R26.9
--- OUTSIDE RECORDS SUMMARY | 2024-11-17 14:55 | XMS_ITS | Encounter Summary ---
Author Organization [facility] Address [address] [place] [address] Care Team Providers Care Marketing Editor Name Role Phone Griselda Gomez MD Primary Care Provi jordi Vesta Calvo PA-C Primary Care Provider Rosanna Sue APRN Primary Care Provider [phone] Encounter Details Date Type Department Care Team (Late st Contact Info) Description 05/28/2015 Historical Results Only [facility] Radiology Results [address] [place] [address] Ana Rosa Cano MD [address] [place] [address] Social History Tobacco Use Types Packs/Day Years Used Date Smoking Tobacco: Never Comments No Sex and Gender Information Value Date Recorded Sex Assigned at Not on file Legal Sex Female 18:37 EST Gender Identity Female 06/07/2019 12:04 EST Sexual Orientation Not on file documented as of this encounter Mental Status * Because of a physical, mental, or emotional condition, do you have serious difficulty concentrating, remembering, or making decisions? (5 years old or older) Answer Entry Date Author Yes 05/01/2011 21:05 EST Isabelle Pena RN documented in this encounter Plan of Treatment Not on file documented as of this encounter Procedures Procedure Name Priority Date/Time Associated Diagnosis Comments CT ANGIO CHEST PE PROTOCOL 05/28/2015 15:[address] HEAD WO CONTRAST 05/28/2015 1 4:07 EST documented in this encounter Results * CT ANGIO CHEST PE PROTOCOL (05/28/2015 15:46 EST) Anatomical Region Laterality Modality Chest Other 05/28/2015 15:4 6 EST Narrative 05/28/2015 16:[address] [address] Diagnostic Imaging Report Signed Patient Name:LUCRECIA HERNANDEZ Date of :1950 MR Number:[id number] Age:65 Sex:F Category: CT Date of Exam:05/28/15 Procedure: CT: Angiography; Chest For PE Ordering Physician: Ana Rosa Cano MD CC: Ana Rosa Cano MD, Lynn MD CT PULMONARY ARTERIOGRAM CLINICAL HISTORY: Near syncope in this patient with elevated quantitative D-dimer. TECHNIQUE: Spiral CT is performed after administration of IV contrast using a bolus- tracking technique. Axial thin section images are obtained from the upper lung hui through the lower lung hui. 2D coronal reconstructions are reviewed, as are 3D MIP reconstructions. FINDINGS: No filling defect within the pulmonary arterial tree is seen. No CT evidence for pulmonary embolism is apparent. The great vessels are unremarkable in appearance and no bulky mediastinal or hilar adenopathy is seen. There is dependent volume loss bilaterally, but no dense lobar infiltrate is seen nor is a pulmonary mass or effusion apparent. The included upper abdominal viscera are unremarkable in appearance as are the subcutaneous soft tissues and bony structures. IMPRESSION: No CT evidence for pulmonary embolism or acute intrathoracic process is identified. NOHEMY/sanford Dictated by: Isidro Cali MD D/ 1633 Transcribed by: ROX D/ 1713 E-Signed by: <Electronically signed by Isidro Cali MD> D/ 1833 Procedure Note Isidro Cali MD - 01/25/[address] [id number] Diagnostic Imaging Report Signed Patient Name:LUCRECIA HERNANDEZAccount Number:[id number] Date of :1950 MRNumber:[id number] Age:65 Sex:F Category: CT Date ofExam:05/28/15 Procedure: CT: Angiography; Chest For PEAccession: [id number] Ordering Physician: Ana Rosa Cano MD CC: Ana Rosa Cano MD, Lynn MD CT PULMONARY ARTERIOGRAM CLINICAL HISTORY: Near syncope in this patient with elevated quantitativeD- dimer. TECHNIQUE: Spiral CT is performed after administration of IV contrastusing a bolus-tracking technique. Axial thin section images are obtained from the upper lungfields through the lower lung hui. 2D coronal reconstructions are reviewed, as are 3D MIPreconstructions. FINDINGS: No filling defect within the pulmonary arterial tree is seen.No CT evidence for pulmonary embolism is apparent. The great vessels are unremarkable inappearance and no bulky mediastinal or hilar adenopathy is seen. There is dependent volume lossbilaterally, but no dense lobar infiltrate is seen nor is a pulmonary mass or effusion apparent.The included upper abdominal viscera are unremarkable in appearance as are the subcutaneous softtissues and bony structures. IMPRESSION: No CT evidence for pulmonary embolism or acute intrathoracicprocess is identified. NOHEMY/sanford Dictated by: Isidro Cali MDD/ 1633 Transcribed by: RAGHAVORD/ 1713 E-Signed by: <Electronically signed by Isidro Cali MD>D/ 1833 us Ana Rosa Cano MD IM CT ORDERABLES Final Res ult * CT HEAD WO CONTRAST (05/28/2015 14:07 EST) Anatomical Region Laterality Modality Head Other 05/28/2015 14:0 7 EST Narrative 05/28/2015 14:[address] [address] Diagnostic Imaging Report Signed Patient Name:LUCRECIA HERNANDEZ Date of :1950 MR Number:[id number] Age:65 Sex:F Category: CT Date of Exam:05/28/15 Procedure: CT: Head; without contrast Ordering Physician: Ana Rosa Cano MD CC: Ana Rosa Cano MD, Lynn MD CT HEAD CLINICAL HISTORY: Vertigo and injury related to falls. Axial sections are obtained from skull base through vertex without administration of contrast. The ventricular and sulcal spaces are unremarkable in appearance. No evidence for mass, hemorrhage or focal parenchymal abnormality is seen. The paranasal sinuses and mastoid air cells are clear. No depressed fracture is identified. NOHEMY/sanford Dictated by: Isidro Cali MD D/ 144 Transcribed by: ROX D/ 145 E-Signed by: <Electronically signed by Isidro Cali MD> D/ 1833 Procedure Note Isidro Cali MD - 01/25/2019 [place] [address] Diagnostic Imaging Report Signed Patient Name:LUCRECIA HERNANDEZAccount Number:[id number] Date of :1950 MRNumber:[id number] Age:65 Sex:F Category: CT Date ofExam:05/28/15 Procedure: CT: Head; without contrastAccession: [id number] Ordering Physician: Ana Rosa Cano MD CC: Ana Rosa Cano MD, Lynn MD CT HEAD CLINICAL HISTORY: Vertigo and injury related to falls. Axial sections are obtained from skull base through vertex withoutadministration of contrast. The ventricular and sulcal spaces are unremarkable in appearance. No evidencefor mass, hemorrhage or focal parenchymal abnormality is seen. The paranasal sinuses and mastoidair cells are clear. No depressed fracture is identified. NOHEMY/eif Dictated by: Isidro Cali MDD/ 144 Transcribed by: RAGHAVORD/ 145 E-Signed by: <Electronically signed by Isidro Cali MD>D/ 1833 Ana Rosa Cano MD IMG CT ORDERABLES Final Res ult documented in this encounter Visit Diagnoses Not on filedocumented in this encounter Care Teams Marketing Editor Relationship Specialty Start Date End Date Griselda Gomez MD [address] [facility] [address] [place] [address] PCP - General 04/24/11 03/10/19 Vesta Calvo PA-C [address] [place] [phone] PCP - General 03/11/19 05/08/22 Rosanna Sue APRN [address] [place] [address] [address] [place] [address] PCP - General Family Medicine - Primary Care 07/09/22 documented as of this encounter
--- OUTSIDE RECORDS SUMMARY | 2024-11-17 14:55 | XMS_ITS | Clinical Summary ---
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 V24, [facility] V28) Social History Tobacco Use Types Packs/Day Years [...] 76 03/14/2024 3:50 PM EST Temperature 36.1 C (97 F) 03/14/2024 3:30 PM EST Respiratory Rate 18 [...] 02/02/2022 02/03/2012 Cholesterol Screening (Lipid Panel) 11/20/2023 Hepatitis C Screening 11/20/2023 Medicare Annual Wellness Visit 11/20/2023 Osteoporosis Screening (Bone Density Screening) 11/20/2023 Social Influencers of Health Screening 11/20/2023 COVID-19 Vaccine ( season) 2023 02/07/2023, 09/18/2021, 02/27/2021, Additional history exists Hypertension/CHF/CAD Annual BMP Blood Test 03/14/2024 Depression Screening 04/27/2024 Influenza Vaccine (#1) 2024 , 02/03/2022, 02/03/2021, Additional history exists Falls Risk Assessment 03/14/2025 03/14/2024 Colorectal Cancer Screening: Colonoscopy 03/14/2029 03/14/2024, 08/09/2020 Zoster Vaccines Completed 05/06/2021, 01/25, 02/11/2012 Pneumococcal Vaccine: 50+ Years Completed 09/18/2021, 02/04/2016, 05/17/2014 RSV Immunization Adult Patients Completed 03/02/2023 HIB Vaccines Aged Out No [...] age to complete this topic Meningococcal B Vaccine Aged Out No l onger eligible based on patient's age to complete [...] Maintenance Results * COLONOSCOPY Anesthesia - MAC; [facility] ENDOSCOPY (03/14/2024 3:29 PM EST) Anatomical Region Laterality Modality Endoscopy 03/14/2024 3:09 PM EST Impressions 03/14/2024 3:30 PM EST - Hemorrhoids found on perianal exam. - One 7 mm polyp in the rectum, removed with a cold snare. Resected and retrieved. - The examination was otherwise normal on direct and retroflexion views. Recommendation: - - Discharge patient to home. - High fiber diet. - Continue present medications. - Await pathology results. - Repeat colonoscopy for surveillance based on pathology results. Narrative 03/14/2024 3:30 PM EST [facility] GI Patient Name: Lucrecia Marroquin Procedure Date: 03/14/2024 3:09 PM Date of : 1950 Age: 74 Gender: Female Note Status: Finalized Attending MD: Keon Vazquez DO, [id number] Procedure Date No Time: 03/14/2024 Procedure: Colonoscopy Indications: High risk colon cancer surveillance: Personal history of colonic polyps Providers: Keon Vazquez DO Referring MD: Sydnie Padilla PA-C Medicines: Monitored Anesthesia Care Complications: No immediate complications. Estimated blood loss: Minimal. Estimated Blood Loss: Estimated blood loss was minimal. Procedure: Pre-Anesthesia Assessment: - - Prior to the procedure, a History and Physical was performed, and patient medications and allergies were reviewed. The patient is competent. The risks and benefits of the procedure and the sedation options and risks were discussed with the patient. All questions were answered and informed consent was obtained. Patient identification and proposed procedure were verified by the physician, the nurse, the anesthesiologist, the hvac tech and the fleet technician in the pre-procedure area in the endoscopy suite. Mental Status Examination: alert and oriented. Airway Examination: normal oropharyngeal airway and neck mobility. Respiratory Examination: clear to auscultation. CV Examination: normal. Prophylactic Antibiotics: The patient does not require prophylactic antibiotics. Prior Anticoagulants: The patient has taken no anticoagulant or antiplatelet agents. ASA Grade Assessment: II - A patient with severe systemic disease. After reviewing the risks and benefits, the patient was deemed in satisfactory condition to undergo the procedure. The anesthesia plan was to use monitored anesthesia care (MAC). Immediately prior to administration of medications, the patient was re-assessed for adequacy to receive sedatives. The heart rate, respiratory rate, oxygen saturations, blood pressure, adequacy of pulmonary ventilation, and response to care were monitored throughout the procedure. The physical status of the patient was re-assessed after the procedure. After I obtained informed consent, the scope was passed under direct vision. Throughout the procedure, the patient's blood pressure, pulse, and oxygen [...] cold snare. Resection and retrieval were complete. Estimated blood loss was minimal. The exam was otherwise without abnormality on direct and retroflexion views. Procedure Code(s): --- Professional --- 42336, Colonoscopy, flexible; with removal of tumor(s), polyp(s), or other lesion(s) by snare technique Diagnosis Code(s): --- Professional --- K64.9, Unspecified hemorrhoids Z86.010, Personal history of colonic polyps D12.8, Benign neoplasm of rectum CPT copyright 2020 [employer]. All rights reserved. The codes documented in this report are preliminary and upon freight brake operator review may be revised to meet current compliance requirements. KEON Vazquez DO 03/14/2024 3:30:32 PM This report has been signed electronically.Keon Vazquez DO Number of Addenda: 0 Note Initiated On: 03/14/2024 3:09 PM Scope Withdrawal Time: 0 hours 6 minutes 27 seconds Scope In: 3:12:10 PM Scope Out: 3:28:29 PM Endoscopy Department at [facility] - [address] [place] [phone] Procedure Note Keon Vazquez DO - 03/14/2024 [facility] GI Patient Name: Lucrecia Marroquin Procedure Date: 03/14/2024 3:09 PM Date of : 1950 Age: 74 Gender: Female Note Status: Finalized Attending MD: Keon Vazquez DO, [id number] Procedure Date No Time: 03/14/2024 Procedure: Colonoscopy [...] the physician, the nurse, the anesthesiologist, the hvac tech and thetechnician in the pre-procedure area in [...] retroflexion views. Procedure Code(s): --- Professional --- 08248, Colonoscopy, flexible; with removal of tumor(s), polyp(s), or other lesion(s) by snare technique Diagnosis Code(s): --- Professional --- K64.9, Unspecified hemorrhoids Z86.010, Personal history of colonic polyps D12.8, Benign neoplasm of rectum CPT copyright 2020 [employer]. All rights reserved. The codes documented in this report are preliminary and upon freight brake operator reviewmay be revised to meet current compliance requirements. KEON Vazquez DO 03/14/2024 3:30:32 PM This report has been signed electronically.Keon Vazquez DO Number of Addenda: 0 Note Initiated On: 03/14/2024 3:09 PM Scope Withdrawal Time: 0 hours 6 minutes 27 seconds Scope In: 3:12:10 PM Scope Out: 3:28:29 PM Endoscopy Department at [facility] - [address] [place] [phone] IMPRESSION: - Hemorrhoids found on perianal exam. [...] Recently Relevant to Health Maintenance Insurance MEDICARE AAR Care Teams Hard Rock Drill Operator Relationship Specialty Start Date End Date Jessica Padilla NP [address] [facility] [address] [place] [address] PCP - General 03/11/24
== END 2024-11-17 15:21 | disposition home or self-care (01) ==
LOC: HO.HSMS 14:48
PROVIDERS: PCP Nurse Practitioner Primary Care; Visit Provider Psychiatry & Neurology Neurology
DX: S06.36AA Traumatic hemorrhage of cerebrum, unspecified, with loss of consciousness status unknown, initial encounter (principal); G47.33 Obstructive sleep apnea (adult) (pediatric); R26.9 Unspecified abnormalities of gait and mobility
CPT/HCPCS: 99214; G2211

== ENCOUNTER → 2024-11-17 14:47 | Outpatient (BNVA) | payer MEDICARE, SELFPAY | PROVIDERS: PCP Nurse Practitioner Primary Care; Visit Provider Psychiatry & Neurology Neurology | DX: S06.36AD Traumatic hemorrhage of cerebrum, unspecified, with loss of consciousness status unknown, subsequent encounter (principal); G47.33 Obstructive sleep apnea (adult) (pediatric); R26.9 Unspecified abnormalities of gait and mobility | CPT/HCPCS: 99212 ==

== ENCOUNTER 2025-02-07 13:05 | Outpatient (RCR) | payer MEDICARE, SELFPAY ==
[2024-12-20 10:13] VITALS: BP 110/60; PULSE 92; O2SAT 98
--- NOTE | 2024-12-20 15:42 | MHC.PT.EP ---
[facility] [place] [facility] [place] Office [place] Office [address] Gael Ron [address] [phone] F: [phone] F: [phone] F: [phone] F: [phone] Physical Therapy Plan of Care Date of Evaluation: 12/20/24 Date of Surgery: Diagnosis: PT eval and treat; R26.9 Unspecified abnormalities or gait and mobility, signed by Dr. 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 Pt reports brain injury was on R side> ICU> [place] [facility] some word finding difficulty/short term memory impairment noted. Pt was seen by neurologist for routine, pt mentioned feeling unsteady with ambulation/balance, was booked for PT eval and treat; R26.9 Unspecified abnormalities or gait and mobility, signed by Dr. Rodriguez 11/18/24. Pt expressing she is hoping to gain confidence for stability with ambulation and exercise strength. Pt is an excellent candidate, active in swimming at [employer]/chair yoga a few days per week. Pt would like to gain confidence for balance/walking/stairs. Pt exhibits good rehab prognosis. Pt educated to bring spouse to next appt for transportation post screen- will benefit from positional vertigo screening (+) provoked with cervical extension and L rotation during eval. Pt verbalized understanding. Pt currently using std cane for ambulation. Frequency and Duration: The patient will be seen 2x/week x 6 weeks Short Term Goals: 1. Sit<>stand on first attempt (IR: Needs UE, poor eccentric control and weight shift from sit<>stand. 2. Demonstrate good eccentric control for functional transfers. (IR: poor eccentric control, loses balance backwards. 3. Improve bridge and scoot strength x 10R without LBP >2/10 across belt-line. (IR: Poor bridge height and poor ability to weight shift without sx belt-line. 4. Bed mobility without vertigo sx (IR: Needs formal positional vertigo screen next session when patient has her to drive her home). Shelter Goals: 1. I HEP. 2. Ambulate with least restrictive AD in community with good dynamic balance. 3. Strength hip abd 5/5 L>R. (IR: poor strength hip abd compensation with hip flexion grossly 3/5 L>R). 4. Strength SLR with good eccentric control. (IR: Poor SLR ability R>L). 5. Stair negotiation with good dynamic balance with use of rail and std cane sequencing. IR: heavy reliance on UE, poor eccentric control. Treatment Plan: Modalities to reduce pain, spasms and effusion. Manual therapy to restore motion and function. Therapeutic exercise to improve strength and flexibility. Neuromuscular re-education for posture and balance. Therapeutic activities to return to functional activities of daily living. Electronically signed by: Karen De Luna, PT, DPT Please sign and return to therapist. Thank you for your referral.
== END 2025-03-16 12:59 | disposition home or self-care (01) ==
LOC: HO.PTS 13:05
PROVIDERS: PCP Nurse Practitioner Primary Care; Visit Provider Psychiatry & Neurology Neurology
DX: R26.9 Unspecified abnormalities of gait and mobility (principal)
CPT/HCPCS: 95992; 97110; 97116; 97140; 97163; 97535

== ENCOUNTER 2025-03-15 14:03 | Outpatient (AMB) | payer MEDICARE, SELFPAY ==
--- OUTSIDE RECORDS SUMMARY | 2022-03-27 10:16 | XMS_ITS | Continuity of Care Document ---
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 Role Phone Nenita Feldman MD Unavailable Unavailable Allergies, Adverse Reactions, Alerts Substance Reaction Status Criticality Sulfa (Sulfonamide Antibiotics) Unknown Active No Information Medications Medication Instructions Dosage Effective Dates (start - stop) Status Comments DULOXETINE HCL (unknown strength) Not Available - Active MAGNESIUM (unknown strength) Not Available - Active IRON (unknown strength) Not Available - Active GABAPENTIN (unknown strength) Not Available - Active VITAMIN B-12 (unknown strength) Not Available - Active vitamin B complex capsule - Active VITAMIN D3 (unknown strength) Not Available - Active CLOBETASOL PROPIONATE (unknown strength) Not Available - Active VAGIFEM (unknown strength) Not Available - Active Flonase Allergy Relief 50 mcg/actuation nasal spray,suspension spray 1 - 2 spray by intranasal route every day in each nostril as needed as needed 50-100 MCG - Active Ventolin HFA 90 mcg/actuation aerosol inhaler as needed - Active Flovent HFA 44 mcg/actuation aerosol inhaler as needed - Active SYMBICORT (unknown strength) as needed Not Available - Active AMOXICILLIN (unknown strength) as needed Not Available - Active MULTIVITAMINS (unknown strength) Not Available - Active LEVOTHYROXINE SODIUM 50 MCG - Active Procedures Procedure Date OFFICE/OUTPATIENT VISIT, EST Advance Directives Directive Yes / No Effective Date File Name No Information Encounters Encounter Description Practice Location Reason(s) For Visit Diagnoses Date Provider OFFICE/OUTPA TIENT VISIT, EST [facility] , [address], [place], [address], tel:[phone] [place] decreased vision (chief complaint) Presence of pseudophakia 2 Gaston Nenita. [address], [address] [place] [address], [facility], [place]. tel:[phone] [facility] , [address] [place] [address], [address], [place] tel:[phone] [place] vitreous detachment (chief complaint) Vitreous detachment of right eyeBilateral vitreous detachment of eyes 2 Gaston Murguia [address] [place] [address], [address], [facility], [place]. tel:[phone] [facility] , [address] [place] [address], [address], [place] tel:[phone] [place] s/p CE IOL (chief complaint) Presence of pseudophakiaVitreous detachment of right eye 1 Gaston Murguia [address] [place] [address], [address], [facility], [place]. tel:[phone] [facility] , [address] [place] [address], [facility], [place] tel:[phone] [place] 1 week s/p cataract sx (chief complaint) Presence of pseudophakia 1 Gaston Murguia [address] [place] [address], [address], [facility], [place]. tel:[phone] [facility] , [address] [place] [address], [facility], [place] tel:[phone] [facility] No Information 1 Gaston Murguia [address] [place] [address], [address], [facility], [place]. tel:[phone] [facility] , [address] [place] [address], [facility], [place] tel:[phone] [place] sp Cataract sx (chief complaint) Presence of pseudophakia 1 Gaston Murguia [address] [place] [address], [address], [facility], [place]. tel:[phone] [facility] , [address] [place] [address], [facility], tel:[phone] [facility] No Information 1 Gaston GutierresNajma [address] [place] [address], [address], [facility], . tel:[phone] [facility] , [address] [place] [address], [facility], tel:[phone] [place] No Information 0 Gaston GutierresNajma [address] [place] [address], [address], [facility], . tel:[phone] [facility] , [address] [place] [address], [facility], tel:[phone] [place] cataracts (chief complaint) Cortical age-related cataract, bilateralAnatomical narrow angle, bilateral Dec- 0 Gastonbrenda Murguia [address] [place] [address], [facility], . tel:[phone] [facility] , [address] [place] [address], [facility], tel:[phone] [place] decreased vision (chief complaint) Cortical age-related cataract, bilateralAnatomical narrow angle, bilateral Oct-2 5-201 9 Gaston GutierresNajma [address] [place] [address], [address], [facility], . tel:[phone] [facility] , [address] [place] [address], [facility], tel:[phone] [place] h/o cataracts & narrow angles (chief complaint) Anatomical narrow angle, bilateralCortical age-related cataract, bilateral Oct-2 5-201 [address] [place] [address], [facility], [place]. tel:[phone] [facility] , [address] [place] [address], [facility], tel:[phone] [place] glaucoma suspect (chief complaint) Open angle with borderline findings, low risk, bilateralAnatomical narrow angle, bilateralCortical age-related cataract, bilateral Oct-2 5-201 7 Gaston Gutierres. [address] [facility], [address] [place] [address], [facility], [place]. tel:[phone] [facility] , [address] [place] [address], [address], [place] tel:[phone] [place] glaucoma (chief complaint) Open angle with borderline findings, low risk, bilateral Sep- 6 Gaston Gutierres. [address] [place] [address], [address], [facility], [place]. tel:[phone] [facility] , [address] [place] [address], [address], [place] tel:[phone] [place] blurry vision (chief complaint)G LAUCOMA/GERTRUDE PS (chief complaint) Anatomical narrow angle borderline glaucomaOpen angle with borderline glaucoma findings 6 Gaston Gutierres. [address] [place] [address], [address], [facility], [place]. tel:[phone] [facility] , [address] [place] [address], [facility], [place] tel:[phone] [place] blurry vision (chief complaint) Anatomical narrow angle borderline glaucomaCortical senile cataract 6 Gaston Gutierres. [address] [place] [address], [address], [facility], [place]. tel:[phone] [facility] , [address] [place] [address], [facility], [place] tel:[phone] [place] Anatomical narrow angle borderline glaucomaCortical senile cataract 5 Gaston Gutierres. [address] [place] [address], [address] [place] [address], [facility], [place]. tel:[phone] [facility] , [address] [place] [address], [facility], [place] tel:[phone] [place] No Information 4 Gaston Gutierres. [address] [place] [address], [address], [facility], [place]. tel:[phone] [facility] , [address] [place] [address] [place], [facility], tel:[phone] [place] Anatomical narrow angle borderline glaucomaPresbyopiaMyop ia 8 4 Gaston Gutierres. [address] [place] [address], [address], [facility], [place]. tel:[phone] [facility], [address], [facility], tel:[phone] [place] Anatomical narrow angle borderline glaucoma 3 Gaston Gutierres. [address] [facility], [address], [facility], [place]. tel:[phone] [facility], [address] [place] [address], [facility], tel:[phone] [place] Anatomical narrow angle borderline glaucoma 0 3 Gaston Gutierres. [address] [facility], [address], [facility], [place]. tel:[phone] [facility], [address] [place] [address], [facility], tel:[phone] [place] Anatomical narrow angle borderline glaucomaAnatomical narrow angle borderline glaucoma 3 No Information [facility], [address] [place] [address], [facility], tel:[phone] [place] Anatomical narrow angle borderline glaucoma 3 No Information [facility], [address] [place] [address], [facility], [place] tel:[phone] [place] Anatomical narrow angle borderline glaucomaAnatomical narrow angle borderline glaucomaChanges in vascular appearance of retinaChanges in vascular appearance of retinaPresbyopiaPresby opia 2- 2 No Information [facility], [address] [place] [address], [facility], [place] tel:[phone] [place] MyopiaMyopia 2 Gaston Nenita. [address] [facility], [address], [facility], [place]. tel:[phone] [facility], [address] [place] [address], [facility], tel:[phone] [place] Open angle with borderline glaucoma findings 1 Gaston Gutierres. [address] [place] [address], [address], [facility], [place]. tel:[phone] [facility] , [address] [place] [address], [facility], tel:[phone] [place] Open angle with borderline glaucoma findingsOpen angle with borderline glaucoma findings 1 Gaston GutierresNajma [address] [place] [address], [address], [facility], [place]. tel:[phone] [facility] , [address] [place] [address], [facility], tel:[phone] [place] No Information 0 Gaston GutierresNajma [address] [place] [address], [facility], [place]. tel:[phone] [facility] , [address] [place] [address], [facility], [place] tel:[phone] [place] No Information 0 No Information [facility] , [address] [place] [address], [facility], tel:[phone] [place] No Information 0 No Information [facility] , [address] [place] [address], [facility], tel:[phone] [place] No Information 0 No Information Family History Family Member Type Diagnosis Age At Onset Father Problem (finding) glaucoma Payers Payer name Insurance type Covered green party ID Authorashely lipscomb(s) Medicare MB [id number] JD [facility] [id number] Social History Type Description Quantity Date Captured Comments Alcohol Use Details Unknown Caffeine Use Details Unknown Tobacco Use Status No Information Smoking Status No Information Sex Female Chief Complaint And Reason For Visit From encounter dated '03/27/2022 15:16'. decreased vision (chief complaint). Description: The 72 year old female presents for evaluation of decreased vision in the right eye and left eye. Pt describes difficulty with mid-distance, which is becoming a problem on her computer etc. She is, however, using bifocals. History Of Present Illness Encounter Date Complaint History Of Prese nt Illness decreased vision The 72 year old female presents for evaluation of decreased vision in the right eye and left eye. Pt describes difficulty with mid-distance, which is becoming a problem on her computer etc. She is, however, using bifocals. vitreous detachment Patient in o ffice for complete exam. Patient denies any changes in vision, eye pain, flashes, floaters, tearing or discharge. Patient is not using any eye drops. Patient no longer has floaters. s/p CE IOL The 70 year old female presents for evaluation of s/p CE IOL in the right eye and left eye. Pt using Bromsite BID OU and Pred QID OU. Pt denies eye pain/discomfort. Pt says vision doing well OU. Pt notes new onset floater OD, started a few days ago and is causing some blurred vision OD. Denies flashes. Denies floaters OS. 1 week s/p cataract sx The 70 ye ar old female presents for evaluation of 1 week s/p cataract sx in the right eye. Kief top OU QID and wilson top OU BID. Pt notes VA OD is good, no complaints and denies pain/discomfort. sp Cataract sx The 70 year old female presents for evaluation of sp Cataract sx in the left eye. Pt has no VA complaints today and denies pain or discomfort. Wilson top OS BID and pink top QID OS. cataracts The 70 year old female presents for evaluation of cataracts in the right eye and left eye. Pt says vision stable OU, notes some difficulty in the evenings. Denies eye pain/discomfort OU. Denies flashes/floaters OU. Pt does not use any eye drops. decreased vision The 69 Year old female presents for evaluation of decreased vision in the right eye and left eye. It started about 2 month(s) ago. The onset was gradual. The symptom is constant. It occurs when watching TV. The condition is worsening. The condition is described as blurring. The patient denies floaters, flashes and eye pain. Pt here for a CX, says she has noticed a slight decrease in mid-range vision. Pt says the writing on the TV is getting more difficult to read. h/o cataracts & narrow angles Th e 68 Year old female presents for evaluation of h/o cataracts & narrow angles in the right eye and left eye. The patient denies change in vision, decreased vision, eye pain and flashes. pt here for CX NFLA & gonio today - no changes or complaints.... glaucoma suspect The 67 Year old female presents for evaluation of glaucoma suspect in the right eye and left eye. The patient denies change in vision, decreased vision, eye pain and flashes. No new floaters. Here for CX & NFLA today - h/o narrow angles. glaucoma The 65 Year old female presents for evaluation of glaucoma HVF today blurry vision The 65 Year old female presents for evaluation of blurry vision in the left eye. The onset was gradual. It affects both near and far vision. The symptom is constant. The patient denies floaters, flashes and eye pain. GLAUCOMA/DROPS The patient is a glaucoma suspect/narrow angle suspect. blurry vision The 65 Year old female presents for evaluation of blurry vision in the left > right. It affects both near and far vision. Denies eye pain. Stable floaters. No flashes noted. Patient notes she has had some recent falls (hit head). Head CT normal, however. Instructions Date Instruction Additional Infor marcus Impression/Plan - ne eds trifocal or progressive. She would like to get progressive. new rx today. Related to Presence of pseudophakia Return in 1-[address] Feldman for Complete Exam. Related to Bilateral vitreous detachment of eyes Impression/Plan - No acute findings. RD warnings understood. Related to Bilateral vitreous detachment of eyes Impression/Plan - Pa tient to discontinue all surgery drops. Final refraction given. Follow-up in one year. Related to Presence of pseudophakia Impression/Plan - Po sterior vitreous detachment accounts for the patient's complaints. Unrelated to recent cataract surgery. There is no evidence of retinal pathology. All signs and risks of retinal detachment and tears were discussed in detail including change in floaters, flashes, or new peripheral field loss. Patient instructed to call the office immediately if any symptoms noted. Related to Vitreous detachment of right eye Impression/Plan - Taco eisenberg instructed to follow medication instructions as per sheet. Contine pred and bromsite OS as well OD for mild residual inflammation OS at 3 w PO. Will follow up in 2 weeks for final check and refraction. Related to Presence of pseudophakia Impression/Plan - Taco eisenberg instructed to follow medication instructions as per sheet. Proceed with surgery in second eye as planned. Related to Presence of pseudophakia Impression/Plan - Ca taracts account for the patient's complaints. Current vision affecting patient's activities of daily living. Discussed options, risks, benefits, procedures and expected recovery course. Patient understands changing glasses will not improve vision. Patient wishes to proceed with surgery. Recommend phacoemulsification with intraocular lens OS then OD. return for IOL master. KATHARINE plano OU. Related to Cortical age-related cataract, bilateral Impression/Plan - go nio borderline/non-occludable. CE/IOL advisable Related to Anatomical narrow angle, bilateral Return in 1 year anastacia Feldman for Gonioscopy and Complete Exam. Related to Anatomical narrow angle, bilateral Impression/Plan - co ntinue observation. new rx glasses today. Related to Cortical age-related cataract, bilateral Impression/Plan - go nio borderline, nonoccludable. continue observation. Related to Anatomical narrow angle, bilateral Return in 1 year anastacia Feldman for Gonioscopy and Complete Exam. Related to Anatomical narrow angle, bilateral Impression/Plan - OS >> OD. no visual limitations. observe. Related to Cortical age-related cataract, bilateral Impression/Plan - go nio nonoccludable OU today. no symptoms of intermittent angle closure. observe and recheck yearly. NFLA today shows normal testing OU. will follow yearly. Related to Anatomical narrow angle, bilateral Return in [address] Feldman for Complete Exam , Gonioscopy , NFA. Related to Anatomical narrow angle, bilateral Impression/Plan - gl aucoma suspect. gonio nonoccludable on exam today. NFLA ordered, performed and reviewed today. Results show normal testing OU. will continue to follow yearly. Related to Anatomical narrow angle, bilateral Impression/Plan - mild. observe. Related to Cortical age-related cataract, bilateral Follow up - Return i n [address] Feldman for Complete Exam , Gonioscopy , NFA. Related to Anatomical narrow angle, bilateral Return in [address] Feldman for Complete Exam , NFA. Related to Open angle with borderline findings, low risk, bilateral Impression/Plan - Vi sual Field testing ordered, performed and reviewed today. Results show normal testing OU. will continue to follow as glauocma suspect. Related to Open angle with borderline findings, low risk, bilateral Follow up - Return i n [address] Feldman for Complete Exam , NFA. Related to Open angle with borderline findings, low risk, bilateral Return in next avail able day with Dr. Feldman for IOP check with VF. Related to Open angle with borderline glaucoma findings Impression/Plan - go nio nonoccludable on exam today. Related to Anatomical narrow angle borderline glaucoma Impression/Plan - rodrigues spicious cupping OU. disc photos today. c/d asymmetry. will follow for changes. NFLA ordered, performed and reviewed today. Results show borderline inferior changes OU. will have pt return for N.A VF testing. if normal, f/u yearly. Related to Open angle with borderline glaucoma findings Follow up - Return i n next available day with Dr. Feldman for IOP check with VF. Related to Open angle with borderline glaucoma findings Return in 6 months w asrabjit Felmdan for Gonioscopy , IOP check , Complete Exam, recheck cataract OS. 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 no marked change in refraction. acuity quite good ou. observe. Related to Cortical senile cataract Impression/Plan - go nio nonoccludable OU today. will continue observation as suspect. Related to Anatomical narrow angle borderline glaucoma Follow up - Return i n [address] Feldman for Gonioscopy , IOP check , Complete Exam, recheck cataract OS. Related to Anatomical narrow angle borderline glaucoma Return in [address] Feldman , IOP check , Gonioscopy. Related to Anatomical narrow angle borderline glaucoma Impression/Plan - go nio looking a bit more narrow OD but not quite at PI criteria. would recheck OU gonio in 6 months. 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 OS greater than OD. observe for now. rx prn only. Related to Cortical senile cataract Follow up - Return i n [address] Feldman , IOP check , Gonioscopy. Related to Anatomical narrow angle borderline glaucoma - Return in [address] Feldman for Follow up Cx w/NFLA and gonio pre DFE Related to Anatomical narrow angle borderline glaucoma Anatomical narrow an gle borderline glaucoma - gonio nonoccludable on exam today OU. will continue to follow as suspect. NFLA today is unremarkable OU. will follow yearly. 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 Related to Myopia - Return in [address] Feldman for Follow up w/Gonioscopy/CX/NFLA Related to Anatomical narrow angle borderline glaucoma Anatomical narrow an gle borderline glaucoma - Visual Field testing ordered, performed and reviewed today. Results show normal VF OU. will follow as suspect. 6 months CX and NFLA with gonio prior to dilation. Related to Anatomical narrow angle borderline glaucoma - Return in [address] Gr for IOP check with VF. Related to Anatomical narrow angle borderline glaucoma Anatomical narrow an gle borderline glaucoma - angles do not appear occludable on gonioscopy today. would recommend repeat gonio yearly. VF testing normal on last exam ou. IOPs wnl OU. would continue observation as glaucoma suspect for now and repeat IOPs with VF 6 months. would not start tx unless definitive VF defects as NFLA may not be reliable given anomalous nerve appearance. Related to Anatomical narrow angle borderline glaucoma Anatomical narrow an gle borderline glaucoma - HVF 24-2: OD: tr inf defects, improved since last HVF but high false positives; OCT flagged nasally and thus not correlating with HVF findigns; OS: tr isolated defects, stable from prior VF (high false positives on VF OS also); OCT flagged sup/temp; given the OCT, gonioscopy findings and overall impression would like pt to be seen n/a for LPI consultation with Dr. 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 Gr Related to Anatomical narrow angle borderline glaucoma Anatomical narrow an gle borderline glaucoma - HVF 24-2 today: OD: defects inf, confluent - appear to have progressed since 2009; OS: tr isolated defects, incons with 2010; pt to RTC 1 month to repeat HVF 24-2 OU; if defects consistent with today's findings, consider LPI cnsult with Dr. 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 ? trouble with new material for progressive lens. Only slight change in refraction on measurement today but 20/20 OU c/w 20/50 in present/new rx Related to Myopia - Return in 1 year w sarabjit Feldman for Follow up w/Gonioscopy and Follow up Cx w/NFLA. Related to Glaucoma Suspect Glaucoma Suspect - n arrow angle suspect. gonio 10/05 nonoccludable but will follow yearly. NFLA today is nonspecific OU. Related to Glaucoma Suspect - Return in [address] Feldman for Follow up Cx w/NFLA. Related to Glaucoma Suspect Glaucoma Suspect - G onioscopy wnl OU today as are IOPs OU. will follow for change. Will check repeat VF after next visit if abn on NFLA. Related to Glaucoma Suspect Assessments Type Assessment Date assessment Presence of pseudophakia 2021 impression Presence of pseudophakia: Z96.1 Bilateral
--- OUTSIDE RECORDS SUMMARY | 2022-03-27 10:16 | XMS_ITS | Continuity of Care Document ---
Author Organization [facility] Address [address] [facility] [address] [place] [address] Phone Care Team Providers Care Levi Maker Name Role Phone Nenita Feldman MD Unavailable [...] [facility] , [address], [place], [address], tel:[phone] [place] decreased vision (chief complaint) Presence of pseudophakia 2 Gaston Nenita. [address], [address] [place] [address], [facility], [place]. tel:[phone] [facility] , [address] [place] [address], [address], [place] tel:[phone] [place] vitreous detachment (chief complaint) Vitreous detachment of right eyeBilateral vitreous detachment of eyes 2 Gaston Murguia [address] [place] [address], [address], [facility], [place]. tel:[phone] [facility] , [address] [place] [address], [address], [place] tel:[phone] [place] s/p CE IOL (chief complaint) Presence of pseudophakiaVitreous detachment of right eye 1 Gaston Murguia [address] [place] [address], [address], [facility], [place]. tel:[phone] [facility] , [address] [place] [address], [facility], [place] tel:[phone] [place] 1 week s/p cataract sx (chief complaint) Presence of pseudophakia 1 Gsaton Murguia [address] [place] [address], [address], [facility], [place]. tel:[phone] [facility] , [address] [place] [address], [facility], [place] tel:[phone] [facility] Outpatient No Information 1 Gaston Murguia [address] [place] [address], [address], [facility], [place]. tel:[phone] [facility] , [address] [place] [address], [facility], [place] tel:[phone] [place] sp Cataract sx (chief complaint) Presence of pseudophakia 1 Gaston Murguia [address] [place] [address], [address], [facility], [place]. tel:[phone] [facility] , [address] [place] [address], [facility], tel:[phone] [facility] Outpatient No Information 1 Gaston GutierresNajma [address] [place] [address], [address], [facility], . tel:[phone] [facility] , [address] [place] [address], [facility], tel:[phone] [place] No Information 0 Gaston GutierresNajma [address] [place] [address], [address], [facility], . tel:[phone] [facility] , [address] [place] [address], [facility], tel:[phone] [place] cataracts (chief complaint) Cortical age-related cataract, bilateralAnatomical narrow angle, bilateral Dec- 0 Gastonbrenda Murguia [address] [place] [address], [facility], . tel:[phone] [facility] , [address] [place] [address], [facility], tel:[phone] [place] decreased vision (chief complaint) Cortical age-related cataract, bilateralAnatomical narrow angle, bilateral Oct-2 5-201 9 Gaston GutierresNajma [address] [place] [address], [address], [facility], . tel:[phone] [facility] , [address] [place] [address], [facility], tel:[phone] [place] h/o cataracts & narrow angles (chief complaint) Anatomical narrow angle, bilateralCortical age-related cataract, bilateral Oct-2 5-201 [address]aston [address] [place] [address], [facility], [place]. tel:[phone] [facility] , [address] [place] [address], [facility], tel:[phone] [place] glaucoma suspect (chief complaint) Open angle with borderline findings, low risk, bilateralAnatomical narrow angle, bilateralCortical age-related cataract, bilateral Oct-2 5-201 7 Gaston Gutierres. [address] [facility], [address] [place] [address], [facility], [place]. tel:[phone] [facility] , [address] [place] [address], [address], [place] tel:[phone] [place] glaucoma (chief complaint) Open angle with borderline findings, low risk, bilateral Sep- 6 Gaston Gutierres. [address] [place] [address], [address], [facility], [place]. tel:[phone] [facility] , [address] [place] [address], [address], [place] tel:[phone] [place] blurry vision (chief complaint)G LAUCOMA/GERTRUDE PS (chief complaint) Anatomical narrow angle borderline glaucomaOpen angle with borderline glaucoma findings 6 Gaston Gutierres. [address] [place] [address], [address], [facility], [place]. tel:[phone] [facility] , [address] [place] [address], [facility], [place] tel:[phone] [place] blurry vision (chief complaint) Anatomical narrow angle borderline glaucomaCortical senile cataract 6 Gaston Gutierres. [address] [place] [address], [address], [facility], [place]. tel:[phone] [facility] , [address] [place] [address], [facility], [place] tel:[phone] [place] Anatomical narrow angle borderline glaucomaCortical senile cataract 5 Gaston Gutierres. [address] [place] [address], [address] [place] [address], [facility], [place]. tel:[phone] [facility] , [address] [place] [address], [facility], [place] tel:[phone] [place] No Information 4 Gaston Gutierres. [address] [place] [address], [address], [facility], [place]. tel:[phone] [facility] , [address] [place] [address] [place], [facility], tel:[phone] [place] Anatomical narrow angle borderline glaucomaPresbyopiaMyop ia 8 4 Gaston Gutierres. [address] [place] [address], [address], [facility], [place]. tel:[phone] [facility], [address], [facility], tel:[phone] [place] Anatomical narrow angle borderline glaucoma 3 Gaston Gutierres. [address] [facility], [address], [facility], [place]. tel:[phone] [facility], [address] [place] [address], [facility], tel:[phone] [place] Anatomical narrow angle borderline glaucoma 0 3 Gaston Gutierres. [address] [facility], [address], [facility], [place]. tel:[phone] [facility], [address] [place] [address], [facility], tel:[phone] [place] Anatomical narrow angle borderline glaucomaAnatomical narrow angle borderline glaucoma 3 No Information [facility], [address] [place] [address], [facility], tel:[phone] [place] Anatomical narrow angle borderline glaucoma 3 No Information [facility], [address] [place] [address], [facility], [place] tel:[phone] [place] Anatomical narrow angle borderline glaucomaAnatomical narrow angle borderline glaucomaChanges in vascular appearance of retinaChanges in vascular appearance of retinaPresbyopiaPresby opia 2- 2 No Information [facility], [address] [place] [address], [facility], [place] tel:[phone] [place] MyopiaMyopia 2 Gaston Nenita. [address] [facility], [address], [facility], [place]. tel:[phone] [facility], [address] [place] [address], [facility], tel:[phone] [place] Open angle with borderline glaucoma findings 1 Gaston Gutierres. [address] [place] [address], [address], [facility], [place]. tel:[phone] [facility] , [address] [place] [address], [facility], tel:[phone] [place] Open angle with borderline glaucoma findingsOpen angle with borderline glaucoma findings 1 Gaston GutierresNajma [address] [place] [address], [address], [facility], [place]. tel:[phone] [facility] , [address] [place] [address], [facility], tel:[phone] [place] No Information 0 Gaston GutierresNajma [address] [place] [address], [facility], [place]. tel:[phone] [facility] , [address] [place] [address], [facility], [place] tel:[phone] [place] No Information 0 No Information [facility] , [address] [place] [address], [facility], tel:[phone] [place] No Information 0 No Information [facility] , [address] [place] [address], [facility], tel:[phone] [place] No Information 0 No Information Family History Family Member Type Diagnosis Age At Onset Father Problem (finding) glaucoma Payers Payer name Insurance type Covered alliance party ID Authorashely lipscomb(s) Medicare MB [id number] [facility] [id number] Social History Type Description Quantity Date Captured [...] s/p cataract sx in the right eye. [place] top OU QID and wilson top OU [...] Bilateral vitreous detachment of eyes Impression/Plan - Po sterior vitreous detachment accounts [...] Vitreous detachment of right eye Impression/Plan - Pa tient to discontinue all surgery drops. Final refraction given. Follow-up in one year. Related to Presence of pseudophakia Impression/Plan - Pa tient instructed to follow medication instructions as per sheet. Contine pred and bromsite OS as well OD for mild residual inflammation OS at 3 w PO. Will follow up in 2 weeks for final check and refraction. Related to Presence of pseudophakia Impression/Plan - Pa tient instructed to follow medication instructions as per sheet. Proceed with surgery in second eye as planned. Related to Presence of pseudophakia Impression/Plan - go nio borderline/non-occludable. CE/IOL advisable Related to Anatomical narrow angle, bilateral Impression/Plan - Ca taracts account for the patient's complaints. Current vision affecting patient's activities of daily living. Discussed options, risks, benefits, procedures and expected recovery course. Patient understands changing glasses will not improve vision. Patient wishes to proceed with surgery. Recommend phacoemulsification with intraocular lens OS then OD. return for IOL master. KATHARINE plano OU. Related to Cortical age-related cataract, bilateral Return in 1 year anastacia Feldman [...] to Anatomical narrow angle, bilateral Impression/Plan - go nio nonoccludable OU today. no symptoms of intermittent angle closure. observe and recheck yearly. NFLA today shows normal testing OU. will follow yearly. Related to Anatomical narrow angle, bilateral Impression/Plan - OS >> OD. no visual limitations. observe. Related to Cortical age-related cataract, bilateral Return in 1 year wit cherri Feldman for Complete Exam , Gonioscopy , NFA. Related to Anatomical narrow angle, bilateral Follow up - Return i n [address] Feldman for Complete Exam , Gonioscopy , NFA. Related to Anatomical narrow angle, bilateral Impression/Plan - mild. observe. Related to Cortical age-related cataract, bilateral Impression/Plan - gl aucoma suspect. gonio nonoccludable on exam today. NFLA ordered, performed and reviewed today. Results show normal testing OU. will continue to follow yearly. Related to Anatomical narrow angle, bilateral Return in 1 year wit cherri Feldman for Complete Exam , NFA. Related [...] in next avail able day with Dr. Felmdan for IOP check with VF. Related to Open angle with borderline glaucoma findings Follow up - Return i n next available day with Dr. Feldman for IOP check with VF. Related to Open angle with borderline glaucoma findings Impression/Plan - rodrigues spicious cupping OU. disc [...] borderline glaucoma Return in 6 months w sarabjit Feldman for Gonioscopy , IOP check , Complete Exam, recheck cataract OS. Related to Anatomical narrow angle borderline glaucoma Impression/Plan - go nio nonoccludable OU today. [...] ou. observe. Related to Cortical senile cataract Return in [address] Feldman , IOP check , Gonioscopy. Related to Anatomical narrow angle borderline glaucoma Follow up - Return i n [address] Feldman , IOP check , Gonioscopy. 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 OS greater than OD. observe for now. rx prn only. Related to Cortical senile cataract Impression/Plan - go nio looking a bit more narrow OD but not quite at PI criteria. would recheck OU gonio in 6 months. 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 Related to Myopia Anatomical narrow an gle borderline glaucoma - [...] is nonspecific OU. Related to Glaucoma Suspect Glaucoma Suspect - G onioscopy wnl OU today as are IOPs OU. will follow for change. Will check repeat VF after next visit if abn on NFLA. Related to Glaucoma Suspect - Return in [address] Feldman for Follow up Cx w/NFLA. Related to Glaucoma Suspect Assessments Type Assessment Date assessment Presence of pseudophakia 2021 impression Presence of pseudophakia: Z96.1 Bilateral
--- OUTSIDE RECORDS SUMMARY | 2022-03-27 10:16 | XMS_ITS | Continuity of Care Document ---
Author Organization [facility] Address [address] [facility] [address] [place] [id number] Phone Care Team Providers Care Assistant Produce Manager Name Role Phone Nenita Feldman MD Unavailable [...] [facility] , [address], [place], [address], tel:[phone] [place] decreased vision (chief complaint) Presence of pseudophakia 2 Gaston Nenita. [address], [address] [place] [address], [facility], [place]. tel:[phone] [facility] , [address] [place] [address], [address], [place] tel:[phone] [place] vitreous detachment (chief complaint) Vitreous detachment of right eyeBilateral vitreous detachment of eyes 2 Gaston Murguia [address] [place] [address], [address], [facility], [place]. tel:[phone] [facility] , [address] [place] [address], [address], [place] tel:[phone] [place] s/p CE IOL (chief complaint) Presence of pseudophakiaVitreous detachment of right eye 1 Gaston Murguia [address] [place] [address], [address], [facility], [place]. tel:[phone] [facility] , [address] [place] [address], [facility], [place] tel:[phone] [place] 1 week s/p cataract sx (chief complaint) Presence of pseudophakia 1 Gaston Murguia [address] [place] [address], [address], [facility], [place]. tel:[phone] [facility] , [address] [place] [address], [facility], [place] tel:[phone] [facility] Outpatient No Information 1 Gaston Murguia [address] [place] [address], [address], [facility], [place]. tel:[phone] [facility] , [address] [place] [address], [facility], [place] tel:[phone] [place] sp Cataract sx (chief complaint) Presence of pseudophakia 1 Gaston Murguia [address] [place] [address], [address], [facility], [place]. tel:[phone] [facility] , [address] [place] [address], [facility], tel:[phone] [facility] Outpatient No Information 1 Gaston GutierresNajma [address] [place] [address], [address], [facility], . tel:[phone] [facility] , [address] [place] [address], [facility], tel:[phone] [place] No Information 0 Gaston GutierresNajma [address] [place] [address], [address], [facility], . tel:[phone] [facility] , [address] [place] [address], [facility], tel:[phone] [place] cataracts (chief complaint) Cortical age-related cataract, bilateralAnatomical narrow angle, bilateral Dec- 0 Gastonbrenda Murguia [address] [place] [address], [facility], . tel:[phone] [facility] , [address] [place] [address], [facility], tel:[phone] [place] decreased vision (chief complaint) Cortical age-related cataract, bilateralAnatomical narrow angle, bilateral Oct-2 5-201 9 Gaston GutierresNajma [address] [place] [address], [address], [facility], . tel:[phone] [facility] , [address] [place] [address], [facility], tel:[phone] [place] h/o cataracts & narrow angles (chief complaint) Anatomical narrow angle, bilateralCortical age-related cataract, bilateral Oct-2 5-201 [address] [place] [address], [facility], [place]. tel:[phone] [facility] , [address] [place] [address], [facility], tel:[phone] [place] glaucoma suspect (chief complaint) Open angle with borderline findings, low risk, bilateralAnatomical narrow angle, bilateralCortical age-related cataract, bilateral Oct-2 5-201 7 Gaston Gutierres. [address] [facility], [address] [place] [address], [facility], [place]. tel:[phone] [facility] , [address] [place] [address], [address], [place] tel:[phone] [place] glaucoma (chief complaint) Open angle with borderline findings, low risk, bilateral Sep- 6 Gaston Gutierres. [address] [place] [address], [address], [facility], [place]. tel:[phone] [facility] , [address] [place] [address], [address], [place] tel:[phone] [place] blurry vision (chief complaint)G LAUCOMA/GERTRUDE PS (chief complaint) Anatomical narrow angle borderline glaucomaOpen angle with borderline glaucoma findings 6 Gaston Gutierres. [address] [place] [address], [address], [facility], [place]. tel:[phone] [facility] , [address] [place] [address], [facility], [place] tel:[phone] [place] blurry vision (chief complaint) Anatomical narrow angle borderline glaucomaCortical senile cataract 6 Gaston Gutierres. [address] [place] [address], [address], [facility], [place]. tel:[phone] [facility] , [address] [place] [address], [facility], [place] tel:[phone] [place] Anatomical narrow angle borderline glaucomaCortical senile cataract 5 Gaston Gutierres. [address] [place] [address], [address] [place] [address], [facility], [place]. tel:[phone] [facility] , [address] [place] [address], [facility], [place] tel:[phone] [place] No Information 4 Gaston Gutierres. [address] [place] [address], [address], [facility], [place]. tel:[phone] [facility] , [address] [place] [address] [place], [facility], tel:[phone] [place] Anatomical narrow angle borderline glaucomaPresbyopiaMyop ia 8 4 Gaston Gutierres. [address] [place] [address], [address], [facility], [place]. tel:[phone] [facility], [address], [facility], tel:[phone] [place] Anatomical narrow angle borderline glaucoma 3 Gaston Gutierres. [address] [facility], [address], [facility], [place]. tel:[phone] [facility], [address] [place] [address], [facility], tel:[phone] [place] Anatomical narrow angle borderline glaucoma 0 3 Gaston Gutierres. [address] [facility], [address], [facility], [place]. tel:[phone] [facility], [address] [place] [address], [facility], tel:[phone] [place] Anatomical narrow angle borderline glaucomaAnatomical narrow angle borderline glaucoma 3 No Information [facility], [address] [place] [address], [facility], tel:[phone] [place] Anatomical narrow angle borderline glaucoma 3 No Information [facility], [address] [place] [address], [facility], [place] tel:[phone] [place] Anatomical narrow angle borderline glaucomaAnatomical narrow angle borderline glaucomaChanges in vascular appearance of retinaChanges in vascular appearance of retinaPresbyopiaPresby opia 2- 2 No Information [facility], [address] [place] [address], [facility], [place] tel:[phone] [place] MyopiaMyopia 2 Gaston Nenita. [address] [facility], [address], [facility], [place]. tel:[phone] [facility], [address] [place] [address], [facility], tel:[phone] [place] Open angle with borderline glaucoma findings 1 Gaston Gutierres. [address] [place] [address], [address], [facility], [place]. tel:[phone] [facility] , [address] [place] [address], [facility], tel:[phone] [place] Open angle with borderline glaucoma findingsOpen angle with borderline glaucoma findings 1 Gaston GutierresNajma [address] [place] [address], [address], [facility], [place]. tel:[phone] [facility] , [address] [place] [address], [facility], tel:[phone] [place] No Information 0 Gaston GutierresNajma [address] [place] [address], [facility], [place]. tel:[phone] [facility] , [address] [place] [address], [facility], [place] tel:[phone] [place] No Information 0 No Information [facility] , [address] [place] [address], [facility], tel:[phone] [place] No Information 0 No Information [facility] , [address] [place] [address], [facility], tel:[phone] [place] No Information 0 No Information Family History Family Member Type Diagnosis Age At Onset Father Problem (finding) glaucoma Payers Payer name Insurance type Covered constitution party ID Authorashely lipscomb(s) Medicare MB [id number] [facility] [id number] Social History Type Description Quantity Date Captured [...] s/p cataract sx in the right eye. [place] top OU QID and wilson top OU [...] Return i n [address] Felmdan for Complete Exam , NFA. Related to [...] glaucoma findings Return in 6 months w sarabjit Feldman [...] seen n/a for LPI consultation with Dr. Fledman; consider topical tx as well Related to [...]
--- NOTE | 2025-03-15 14:04 | A.OFFVIS_ITS ---
Vital Signs 03/15/25 14:05 Height 5 ft 3 in Weight 194 lb 2 oz BMI 34.4 BP 120/74 Blood Pressure Location Rt brachial Position Sitting Pulse 85 Pulse Source Pulse Oximeter Pulse Oximetry (%) 100 Oxygen Delivery Method Room Air Intake Visit Reasons: 4mnth follow up Intake Note: Follow up Cerebral hemorrhage following injury, KIM, gait Tool Machine Shop Supervisor Required: No Accompanied by: Self / Same As Patient Allergies sulfamethoxazole Adverse Reaction (Intermediate, Verified 03/15/25 14:04) Anaphylaxis HPI Comments Details: 75y/o right handed female comes for follow up following a traumatic cerebral hemorrhage in Mar 2023. No falls SHe had vestibular therapy which helped significantly. she was doing OK but feels more off balance when she changes positions.. .she is CPAP .she is sleeping better. ANxiety is better. No seizures History- she had a fall in the garage of her house - fell on cement / 3 stairs . she lost consiousness. Her found her , she had ice cream had not melted so she presumes that she was not unconscious for a long time.she woke up when her found her and she was confused and agitated. she was taken to [facility] trauma center-[facility] was 9 and improved to 13. she was found to have cerbebral hemorrhage, subarachnoid hemorrhage and 3 mm subdural hematoma in the left frontoparietal region with right occipiatl parietal bone nondisplaced skull fracture .( see results for details) Patient was seen by Neurosurgery and was admitted to ICU and started on seizure prophylaxis with keppra 500mg bid for 1 week. Her status improved and she was transferred to [facility] .when she was disc harged she was neurologically stable with no deficits. Since her fall, she feels her cognition and walking is worse- better now.she denies headaches. she denies dizziness. [facility] Medical History Vertigo Word finding difficulty Cerebral hemorrhage following injury Cerebral hemorrhage without late effect Anxiety Obstructive sleep apnea Hyperlipidemia HTN (hypertension) Gait abnormality Lichen planus Depression Raynauds phenomenon Asthma Restless legs syndrome (RLS) Prediabetes Dizziness Hypothyroidism Surgical History H/O total hysterectomy History of cholecystectomy Total knee replacement status Social History Household Members: Spouse Caregiver staying overnight: Yes Housing: House Alcohol intake: current Comment: beer- occasional Patient Tobacco Use Status: Former Tobacco user Years Smoked: Quit in 1979 Physical Exam Vital Signs: Last Vital Signs Pulse 85 03/15/25 14:05 BP 120/74 03/15/25 14:05 Pulse Ox 100 03/15/25 14:05 Oxygen Delivery Method Room Air 03/15/25 14:05 BMI result Body Mass Index 34.4 Const General: cooperative, healthy appearing and comfortable Nutritional Appearance: average body habitus Orientation/consciousness: patient oriented x3 Neck Neck: Yes no meningeal signs Neuro Other: Gait- mild wide based with cane Mild decreased blink General: patient oriented x3, gait normal, tone normal, moves all extremities, no meningeal signs and no focal motor deficits Cranial nerves: Yes Facial sensation intact/muscles of mastication intact, Yes Nystagmus not present and Yes Normal facial strength present Cognition (Neuro): normal cognition Motor exam (neuro): 5/5 motor strength present throughout and Normal motor muscle tone present throughout Coordination: effrvy-na-fhcc test normal Psych Affect: Anxious affect present Assessment & Plan Assessment & Plan (1) Cerebral hemorrhage following injury: Comment: Apr 11 fall - with left frontotemporal parenchymal , SAH and small subdural , right occipital, parietal fracture CT 06/26/23 shows resolution Code(s): S06.36AA - Traumatic hemorrhage of cerebrum, unspecified, with loss of consciousness status unknown, initial encounter Category: Medical Qualifiers: Laterality: unspecified laterality (2) Obstructive sleep apnea: Code(s): G47.33 - Obstructive sleep apnea (adult) (pediatric) Category: Medical (3) Gait abnormality: Code(s): R26.9 - Unspecified abnormalities of gait and mobility Category: Medical Plan Continue vestibular exercises Continue exercises. CPAP- will get reports from [place] - and refer her to a different home care company for supplies. Coding Level of Care Code Est Pt Level 4 (35205) Diagnoses Cerebral hemorrhage following injury S06.36AA Laterality: unspecified laterality Obstructive sleep apnea G47.33 Gait abnormality R26.9
[2025-03-15 14:05] VITALS: BP 120/74; PULSE 85; O2SAT 100; BMI 34.4
== END 2025-03-15 14:29 | disposition home or self-care (01) ==
LOC: HO.HSMS 14:04
PROVIDERS: PCP Nurse Practitioner Primary Care; Visit Provider Psychiatry & Neurology Neurology
DX: S06.36AA Traumatic hemorrhage of cerebrum, unspecified, with loss of consciousness status unknown, initial encounter (principal); G47.33 Obstructive sleep apnea (adult) (pediatric); R26.9 Unspecified abnormalities of gait and mobility
CPT/HCPCS: 99214

== ENCOUNTER → 2025-03-15 14:03 | Outpatient (BNVA) | payer MEDICARE, SELFPAY | PROVIDERS: PCP Nurse Practitioner Primary Care; Visit Provider Psychiatry & Neurology Neurology | DX: G47.33 Obstructive sleep apnea (adult) (pediatric) (principal); Z99.89 Dependence on other enabling machines and devices; R26.9 Unspecified abnormalities of gait and mobility; Z87.891 Personal history of nicotine dependence; S02.11A Type I occipital condyle fracture, right side; W10.8XXA Fall (on) (from) other stairs and steps, initial encounter; S06.361A Traumatic hemorrhage of cerebrum, unspecified, with loss of consciousness of 30 minutes or less, initial encounter | CPT/HCPCS: 99212 ==